=== PATIENT | female | born 1965 | race Caucasian/White ===

== ENCOUNTER → 2022-11-20 13:39 | Outpatient (CLI) | payer OTHER, SELFPAY | PROVIDERS: PCP Acupuncturist; Visit Provider Nurse Practitioner Family | DX: L02.91 Cutaneous abscess, unspecified (principal) | CPT/HCPCS: 87070; 87075; 87205 ==

== ENCOUNTER → 2023-12-08 18:48 | Outpatient (CLI) | payer OTHER, SELFPAY | PROVIDERS: Referring Provider Internal Medicine; Visit Provider Internal Medicine | DX: Z23 Encounter for immunization (principal) | CPT/HCPCS: 90471; 90656 ==

== ENCOUNTER → 2023-12-17 18:20 | Outpatient (CLI) | payer OTHER, SELFPAY | PROVIDERS: Visit Provider Registered Nurse | DX: J02.9 Acute pharyngitis, unspecified (principal) | CPT/HCPCS: 87070 ==

== ENCOUNTER 2024-02-23 08:31 | Emergency (ER) | payer OTHER, SELFPAY ==
[2024-02-23] VITALS (7 sets, daily range): BP systolic 102–141; BP diastolic 55–83; PULSE 55–69; RESP 15–19; TEMP 36.8; O2SAT 98–100; BMI 24.0
--- NOTE | 2024-02-23 09:10 | DI.US.S_ITS ---
PROCEDURE: US RENAL COMPLETE INDICATIONS: Flank pain TECHNIQUE: Real-time scanning was performed of the kidneys and bladder, with image documentation. COMPARISON: None. FINDINGS: Kidneys: Kidneys are normal in size. Right kidney measures 10.7 cm long; left kidney measures 8.9 cm long. Right renal cortical thickness is 1.5 cm; left renal cortical thickness is 1.1 cm. Renal cortical echotexture is normal. No hydronephrosis or nephrolithiasis. No suspicious solid mass lesions. Bladder: Bladder volume is 60.3 mL. Images demonstrate no intraluminal masses or stones. On pre-void images, bilateral ureteral jets are noted with color Doppler interrogation. (Of note, ureteral jets may not be detectable in up to 25% of cases due to insufficient differences in specific gravity between ureteral and bladder urine). Miscellaneous: No free pelvic fluid. IMPRESSION: Normal sonographic appearance of the kidneys and urinary bladder. Dictated by: Serjio Tello M.D. on 02/23/2024 at 10:04 Approved by: Serjio Tello M.D. on 02/23/2024 at 10:06
--- NOTE | 2024-02-23 09:10 | DI.RAD.S_ITS ---
PROCEDURE: XR KUB INDICATIONS: Flank pain TECHNIQUE: One view of the abdomen acquired. COMPARISON: None. FINDINGS: Surgical changes and devices: Uncertain if superimposed or within the patient is seen a clip overlying the right mid abdomen. Bowel: Bowel gas pattern is normal. Soft tissues: No suspicious abdominal calcifications. Mild hepatomegaly measuring 18.3 cm in the right midclavicular line. Otherwise, the visualized solid organ contours appear normal in size. Bones: No suspicious bony lesions. IMPRESSION: 1. Hepatomegaly. 2. A single large clip is seen overlying the right mid abdomen, uncertain if superimposed or within the patient. Dictated by: Serjio Tello M.D. on 02/23/2024 at 10:01 Approved by: Serjio Tello M.D. on 02/23/2024 at 10:04
--- NOTE | 2024-02-23 09:11 | ED_ITS ---
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 She was on her way to work today in the car, had sudden onset of right flank pain. Nothing makes it better or worse. Can not find a comfortable position. No prior history of heart attack strokes diabetes aortic dissection aortic aneurysm, no history of kidney stones or gallbladder disease. She prefers no opiates at this time as she is driving. She agrees for Toradol. No urinary urgency. Patient has noticed off and on pain right flank right upper quadrant for the past few days. No changes with diet or eating. Related Data Home Medications Medication Instructions Recorded Confirmed ALBUTEROL SULFATE (Ventolin / 2 puff INH Q4H PRN ##0 05/26/08 Proventil) cyclosporine 0.05 % eye drops in a drp EYE-BOTH 12/17/23 12/17/23 dropperette meloxicam 7.5 mg tablet 7.5 mg PO DAILY PRN mild pain 12/17/23 12/17/23 valacyclovir 1 gram tablet 4,000 mg PO ONCE 12/17/23 12/17/23 Previous Rx's Medication Instructions Recorded baclofen 20 mg tablet 20 mg PO TID PRN pain (scale score 02/23/24 4-6) #20 tabs Allergies Allergy/AdvReac Type Severity Reaction Status Date / Time CONTROL PILLS Allergy Mild SUN Uncoded 12/17/23 18:19 SENSATIVITY SUNSCREEN Allergy Mild RASH Uncoded 12/17/23 18:19 Review of Systems Review of Systems Narrative: GENERAL: Negative chills, fatigue, malaise, fever, sweats. HEENT: Negative sinus pain, ear pain, sore throat RESPIRATORY: Negative dyspnea, cough CARDIOVASCULAR: Negative chest pain, palpitations GASTROINTESTINAL: Negative nausea, vomiting, positive right flank/right upper abdominal pain : Negative dysuria, frequency, hematuria MUSCULOSKELETAL: Negative muscle or bony pain SKIN: Negative rash, skin lesions NEUROLOGIC: Negative weakness, numbness ROS Unobtainable: All systems reviewed & are unremarkable except as noted in HPI and below Patient History Social History Smoking Status: Never smoker Smoking Status: Never smoker Exam Narrative Exam Narrative: GENERAL: in no distress, not toxic not dyspneic HEAD: Normocephalic. EYES: Pupils equal round ENT: Mucous membranes moist. NECK: Trachea midline. CARDIOVASCULAR: Regular rate and rhythm RESPIRATORY: Clear to auscultation. Breath sounds equal bilaterally. No wheezes, rales, or rhonchi. GASTROINTESTINAL: Abdomen soft, non-tender no CVA tenderness no right upper quadrant tenderness. Negative Buckner sign. Bowel sounds are present. No peritoneal signs. No pain out of portion to exam. EXTREMITIES: No gross deformities. BACK: No flank tenderness. NEURO: AOx4. SKIN: Warm and dry PSYCH: Not anxious, is cooperative Initial Vital Signs Initial Vital Signs: Vital Signs Temperature 98.2 F 02/23/24 08:53 Pulse Rate 69 02/23/24 08:53 Respiratory Rate 15 02/23/24 08:53 Blood Pressure 141/83 H 02/23/24 08:53 Pulse Oximetry 98 02/23/24 08:53 Oxygen Delivery Method Room Air 02/23/24 08:53 Course Orders Ordered: Discontinued Medications Sodium Chloride (Normal Saline 0.9%) 500 mls @ 1,000 mls/hr IV BOLUS ONE Stop: 02/23/24 09:35 Last Infusion: 02/23/24 10:50 Dose: Infused Documented By: Admin: 02/23/24 09:18 Dose: 1,000 mls/hr Documented By: Ketorolac Tromethamine (Ketorolac 30 Mg/Ml Vial) 15 mg IV NOW ONE Stop: 02/23/24 09:07 Last Admin: 02/23/24 09:17 Dose: 15 mg Documented By: Ondansetron HCl (Ondansetron 4 Mg/2 Ml Inj) 4 mg IV NOW PRN PRN Reason: Nausea And Vomiting Ondansetron HCl (Ondansetron 4 Mg Odt) 4 mg SL NOW PRN PRN Reason: Nausea And Vomiting Vital Signs Vital signs: Vital Signs - 8 hr 02/23/24 10:00 02/23/24 12:29 02/23/24 15:08 Pulse Rate 55 L 66 65 Respiratory Rate 16 19 16 Blood Pressure 115/75 132/78 102/78 Pulse Oximetry 100 98 98 Oxygen Delivery Method Room Air Room Air Room Air MDM - Abdominal Pain Lab Data 02/23/24 08:59 02/23/24 08:59 Labs: Lab Results 02/23/24 02/23/24 Range/Units 08:59 09:25 WBC 5.1 (4.5-11.0) X10^3/uL RBC 4.43 (4.0-5.2) X10^6/uL Hgb 13.3 (12.0-16.0) g/dL Hct 40.6 (36-46) % MCV 91.6 (80-100) fL MCH 30.1 (26-34) PG MCHC 32.8 (30-36) % RDW 13.3 (11.6-14.8) % Plt Count 250 (150-400) X10^3/uL Neut % (Auto) 47.6 L (50-75) % Lymph % (Auto) 42.8 H (25-40) % [place] % (Auto) 6.5 (3-14) % Eos % (Auto) 2.4 (2-4) % Baso % (Auto) 0.7 (0-2) % Neut # (Auto) 2400 (8758-0796) /uL Lymph # (Auto) 2200 (4555-7869) /uL [place] # (Auto) 300 (0-900) /uL Eos # (Auto) 100 (0-450) /uL Baso # (Auto) 0 (0-100) /uL Sodium 139 (137-145) mmol/L Potassium 4.0 (3.4-5.1) mmol/L Chloride 106 (98-107) mmol/L Carbon Dioxide 28 (22-32) mmol/L BUN 18 H (7-17) mg/dL Creatinine 0.63 (0.52-1.04) mg/dL Estimated GFR > 60 (>60) mL/min BUN/Creatinine Ratio 28.6 H (6-22) Glucose 85 (80-110) mg/dL Calcium 9.6 (8.4-10.2) mg/dL Total Bilirubin 1.0 (0.2-1.3) mg/dL AST 46 H (14-36) IU/L ALT 22 (<35) IU/L Alkaline Phosphatase 64 (38-126) U/L Total Protein 7.1 (6.3-8.2) g/dL Albumin 4.5 (3.5-5.0) g/dL Globulin 2.6 (1.7-4.1) g/dL Albumin/Globulin Ratio 1.7 (1.0-2.8) Lipase 113 (23-300) U/L Urine Color Yellow Urine Appearance Clear Urine pH 7.0 (4.5-8.0) Ur Specific [place] <=1.005 (1.000-1.035) Urine Protein Negative (Negative) Urine Glucose (UA) Negative (Negative) g/dL Urine Ketones Negative (NEGATIVE) Urine Occult Blood Negative (Negative) Urine Nitrate Negative (Negative) Urine Bilirubin Negative (NEGATIVE) Urine Urobilinogen 0.2 (0.2) E.U./dL Ur Leukocyte Esterase Negative (NEGATIVE) Urine RBC None seen (0-5/HPF) Urine WBC None seen (0-5/HPF) Ur Squamous Epith Cells None seen (0-5/HPF) Urine Bacteria None seen (None) Ur Culture Indicated? 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 She was on her way to work today in the car, had sudden onset of right flank pain. Nothing makes it better or worse. Can not find a comfortable position. No prior history of heart attack strokes diabetes aortic dissection aortic aneurysm, no history of kidney stones or gallbladder disease. She prefers no opiates at this time as she is driving. She agrees for Toradol. No urinary urgency. Patient has noticed off and on pain right flank right upper quadrant for the past few days. No changes with diet or eating. After history and exam, CT imaging machine is broken for the past 2 days. At this time will order ultrasound kidneys x-ray KUB Toradol Zofran normal saline CBC CMP urinalysis [facility] Medical records reviewed: No recent visit for this complaint Differential considered: Includes but not limited to kidney stone pyelonephritis UTI cholelithiasis cholecystitis Lab Test results independently reviewed as above. Pertinent findings: WBC 5.1 hemoglobin 13.3 sodium 139 potassium 4.0 BUN 18 creatinine 0.63 AST 46 ALT 22 lipase 113 urinalysis negative Imaging studies independently reviewed: Ultrasound kidneys no acute finding x- ray KUB negative. Ultrasound limited abdomen no acute finding. CT chest abdomen pelvis no acute finding Consultations: Treatments: Toradol Zofran normal saline Re-evaluations: 10:42 a.m.. Updated patient results. Her pain is better. Awaiting now for blood work and gallbladder ultrasound to be done. Urinalysis x-ray KUB and renal ultrasound are reassuring. 11:33 a.m.. Updated patient results. She does agree for CT imaging as pain has not completely resolved. She states it feels maybe deeper. But it is tender on palpation right CVA area. Denies any chest pain or shortness of breath. 5:16 p.m.. Patient resting comfortably. On her right side. No distress. Reviewed results with her. They are reassuring at this time. Return precautions reviewed. She desires discharge home Discussion: Appropriate for discharge home exam is reassuring. Return precautions reviewed with patient, pain is controlled. Likely musculoskeletal source of pain. She did do some ?air boxing ?on her video game yesterday this is common exercise for her. She thinks she may have strained something in her back with air punching. Diagnosis: Right flank pain Discharge Plan Departure Patient Disposition: Home Clinical Impression: Acute flank pain Instructions: DI for Flank Pain Activity Restrictions/Additional Instructions: Your exam and laboratory studies imaging studies are reassuring. No acute finding seen today. It is possible it is muscular pain causing your discomfort. Prescription has been provided for you. Work note provided for you. Please see family doctor in a week for re-evaluation. Return if worse if any questions or concerns. Prescriptions: New baclofen 20 mg tablet 20 mg PO TID PRN (Reason: pain (scale score 4-6)) Qty: 20 0RF No Action meloxicam 7.5 mg tablet 7.5 mg PO DAILY PRN (Reason: mild pain) valacyclovir 1 gram tablet 4,000 mg PO ONCE cyclosporine 0.05 % dropperette EYE-BOTH ALBUTEROL SULFATE (Ventolin / Proventil) 2 puff INH Q4H PRN Qty: 0 Referrals: Miscellaneous,Doctor, MD [Primary Care Provider] - Stand Alone Forms: Patient Portal/API/Survey, Work Release Note
[2024-02-23] MEDS: KETOROLAC 30 MG/ML VIAL 15 MG IV (09:17)
[2024-02-23] MEDS: SODIUM CHLORIDE 0.9% 500 ML 1000 ML IV (09:18)
[2024-02-23 09:38] LABS: Appearance Urine UA CLEAR; Bilirubin Urine UA NEGATIVE (NEGATIVE); Color Urine UA YELLOW; Glucose Urine UA NEGATIVE (Negative); Ketones Urine UA NEGATIVE (NEGATIVE); Leukocyte Esterase Urine UA NEGATIVE (NEGATIVE); Nitrite Urine UA NEGATIVE (Negative); Occult Blood Urine UA NEGATIVE (Negative); Protein Urine UA NEGATIVE (Negative); Specific Gravity Urine UA <=1.005 (1.000-1.035); Urobilinogen Urine UA 0.2 E.U./dL (0.2)
[2024-02-23 09:43] LABS: Urine Volume 10mL (spun)
[2024-02-23 09:44] LABS: Bacteria Urine None Seen; Culture Indicated Urine Cult Not Indicated; RBC Urine None Seen (0-5/HPF); Squamous Epithelial Cell Urine None Seen (0-5/HPF); WBC Urine None Seen (0-5/HPF)
--- NOTE | 2024-02-23 09:53 | PC.NURSE ---
Pt reports that pain is less. 5/10 at this time. Call germain within reach.
--- NOTE | 2024-02-23 10:39 | DI.US.S_ITS ---
PROCEDURE: US ABDOMEN LIMITED INDICATIONS: Right upper quadrant pain/attention gallbladder TECHNIQUE: Real-time scanning was performed of the abdominal and retroperitoneal organs, with image documentation. COMPARISON: None. FINDINGS: Liver: Liver is normal in size and homogeneous in echotexture. Gallbladder: No gallstones. No wall thickening. No pericholecystic edema. Negative sonographic Buckner's sign. Biliary ducts: Intrahepatic bile ducts are non-dilated. Extrahepatic bile duct caliber measures 4 mm. Normal is 6-7 mm or less in diameter, or 10 mm or less post-cholecystectomy. Right Kidney: Normal size at 10.9 cm with normal cortical thickness. No hydronephrosis or nephrolithiasis. Pancreas: Visualized portions of the pancreas are sonographically normal. Miscellaneous: No free abdominal fluid. IMPRESSION: 1. No evidence of acute cholecystitis. 2. Normal sonographic appearance of the right upper quadrant. Dictated by: Serjio Tello M.D. on 02/23/2024 at 12:49 Approved by: Serjio Tello M.D. on 02/23/2024 at 13:07
--- NOTE | 2024-02-23 10:51 | PC.NURSE ---
Pt up to BR. Steady gait noted. Discussed plan of care, understands.
[2024-02-23 10:57] LABS: Add Manual Diff / Slide Review NO; Basophils Absolute Auto 0 /uL (0-100); Basophils Percent Auto 0.7 % (0-2); Eosinophils Absolute Auto 100 /uL (0-450); Eosinophils Percent Auto 2.4 % (2-4); Hematocrit 40.6 % (36-46); Hemoglobin 13.3 g/dL (12.0-16.0); Lymphocytes Absolute Auto 2200 /uL (1100-4500); Lymphocytes Percent Auto 42.8 % (25-40); Mean Corpuscular HGB Conc 32.8 % (30-36); Mean Corpuscular Hemoglobin 30.1 PG (26-34); Mean Corpuscular Volume 91.6 fL (80-100); Monocytes Absolute Auto 300 /uL (0-900); Monocytes Percent Auto 6.5 % (3-14); Neutrophils Absolute Auto 2400 /uL (1500-7000); Neutrophils Percent Auto 47.6 % (50-75); Platelet Count 250 X10^3/uL (150-400); Red Blood Cell Count 4.43 X10^6/uL (4.0-5.2); Red Cell Distribution Width 13.3 % (11.6-14.8); White Blood Cell Count 5.1 X10^3/uL (4.5-11.0)
[2024-02-23 11:05] LABS: Alanine Aminotransferase 22 IU/L (<35); Albumin 4.5 g/dL (3.5-5.0); Albumin Globulin Ratio 1.7 (1.0-2.8); Alkaline Phosphatase 64 U/L (38-126); Aspartate Aminotransferase 46 IU/L (14-36); BUN Creatinine Ratio 28.6 (6-22); Blood Urea Nitrogen 18 mg/dL (7-17); Calcium 9.6 mg/dL (8.4-10.2); Carbon Dioxide 28 mmol/L (22-32); Chloride 106 mmol/L (98-107); Estimated Glomerular Filt Rate > 60 mL/min (>60); Globulin 2.6 g/dL (1.7-4.1); Glucose 85 mg/dL (80-110); HEMOLYSIS < 15 (0-50); Lipase 113 U/L (23-300); Sodium 139 mmol/L (137-145); Total Protein 7.1 g/dL (6.3-8.2)
--- NOTE | 2024-02-23 11:49 | PC.NURSE ---
Pt states that she is very hungry. ok for pt to have PO intake. Coffee and food brought to pt.
== END 2024-02-23 17:29 | disposition home or self-care (01) ==
PROVIDERS: Emergency Provider Emergency Medicine
DX: R10.11 Right upper quadrant pain (principal)
CPT/HCPCS: 74018; 76705; 76770; 80053; 81001; 83690; 85025; 96361; 96374; 99283; 99284; J1885

== ENCOUNTER 2024-06-01 09:00 | Outpatient (RCR) | payer OTHER, SELFPAY ==
--- NOTE | 2024-04-06 18:39 | PT.OIE ---
Current Diagnoses Primary osteoarthritis, left shoulder (04/06/24) Incomplete rotator cuff tear or rupture of left shoulder, not specified as traumatic (04/06/24) Visit Care Team Role Provider Type Reba Limon MD Family Provider Non-Staff Primary Care Provider Specialty: Medical Address: [address] [place] [address], [place], [address] Email: Fer Lind DO Attending Provider Non-Staff Referring Provider Specialty: Orthopedics Address: [address] [place] [address], [place], [address] Email: Physical Therapy Initial Evaluation PT-OP-A Visit Information Start: 04/06/24 11:51 Freq: Status: Active Protocol: Document 04/06/24 12:16 LRN (Rec: 04/06/24 13:09 LRN [id number]) Out-Patient Physical Therapy Visit Information Visit Information Visit Type Initial Evaluation Visit Start Time 12:16 Visit Stop Time 13:07 Visit Number Evaluation Information Evaluation Date 04/06/24 Precautions Precautions Per intake form: Osteoporosis , neck pain w/severe stenosis (constant R sided ms spasms), R forearm ORIF, umbilical hernia. Per pt: hx of L/S herniated discs. PT-OP-B Current Condition Start: 04/06/24 11:51 Freq: Status: Active Protocol: Document 04/06/24 12:16 LRN (Rec: 04/06/24 13:09 LRN [id number]) Current Condition History of Current Condition Onset Date 12/2022 Current Complaints L shoulder pain (R shoulder pain not approved for PT) History of Current Condition States in 2023 had Physical Therapy for L RC injury at [facility] in [facility] for 6-8 sessions, had + response and thought she was healed because she had full ROM, and didn't have the strength tested, but was playing pickle ball, able to do outside land management on large property, 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 In 12/2022 went on fishing trip and helped staff carry heavy boxes up a [place] and by the end of the trip her L shoulder was very painful. She had injured her R shoulder 7 months ago ( reports, not approved by L&I for treatment); therefore has been doing everything with her L shoulder; it now hurts again. Has tried to do ex's from her previous therapy. Saw Dr. Valadez and then had MRI ( results unknown). Since new onset of L shoulder pain she is limited to lifting to shoulder height or above because of pain. She is attending [facility] PT because she is now working in [employer]. Prior Treatments and Tests No new MRI's or X-rays since new onset of L shoulder pain. MRI done at [facility]; therefore results are not available. Has had chiro visits 10 yrs ago. Pt reports hx of Lumbar herniated disc but no longer has pain. 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 L shoulder pain till September 2023 Now restricted from doing UE activities to waist high. Lives in [place]. Seizure x 1 (10+ yrs ago). Treatment Goals Patient/Caregiver Goals Pt goals: -be able to pull a piece of equipment from above shoulder hgt or reach up to get something at home w/o pain. -functional activities reaching or scratching her back, reaching out to the side painfree. -improve upper body strength. -HEP Personal Factors Other Personal Factors That May Effect Osteoporosis, neck pain w/ Therapy/Recovery severe stenosis (constant R sided ms spasms). 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 PT-OP-C Subjective Start: 04/06/24 11:51 Freq: Status: Active Protocol: Document 04/06/24 12:16 LRN (Rec: 04/06/24 13:09 LRN [id number]) Patient Questionnaires Quick Dash- Upper Extremity Quick Dash UE Score 43.18 Quick Dash UE Impairment 40 to 59% Impaired (Score 40- 59) OP-PT Pain Assessment Pain Assessment Grid Paper Pain Assessment Grid Completed Yes Location L shoulder Pain Location Details Deep in Deltoid Intensity 6 Scale Used Numeric (0 - 10) Description- Other Deep ache PT-OP-E Functional Tests Start: 04/06/24 11:51 Freq: Status: Active Protocol: Document 04/06/24 12:16 LRN (Rec: 04/06/24 13:09 LRN [id number]) Functional Tests Nicoleey's Scratch Test Action 3- Left T5 Action 3- Right T7 PT-OP-H Neuro Start: 04/06/24 11:51 Freq: Status: Active Protocol: Document 04/06/24 12:16 LRN (Rec: 04/06/24 13:09 LRN [id number]) Sensation Evaluation Gross Sensation Gross Sensation WNL PT-OP-J Posture/Palpation/Skin Start: 04/06/24 11:51 Freq: Status: Active Protocol: Document 04/06/24 12:16 LRN (Rec: 04/06/24 13:09 LRN [id number]) Posture Evaluation Position Standing L-Spine Posture Increased Lordosis Shoulder Posture (L) Forward,(L) Elevated Scapula Posture (L) Rotated Down,(L) Elevated Knee Posture (L) Genu Valgus,(R) Genu Valgus Ankle/Foot Posture (R) Pronated,(L) Supinated Comments Posture Comments Dowagers hump, T/S is C- curved w/apex on the left. PT-OP-K Range of Motion Start: 04/06/24 11:51 Freq: Status: Active Protocol: Document 04/06/24 12:16 LRN (Rec: 04/06/24 13:09 LRN [id number]) Shoulder Goniometric Range of Motion Shoulder Right Active Testing Position Sitting Flexion 155 Abduction 137 External Rotation at 0 degrees Abduction 90 Internal Rotation Behind Back (text) T7 Left Active Testing Position Sitting Flexion 132 Abduction 32 External Rotation at 0 degrees Abduction 72 Internal Rotation Behind Back (text) t5 PT-OP-M Strength Start: 04/06/24 11:51 Freq: Status: Active Protocol: Document 04/06/24 12:16 LRN (Rec: 04/06/24 13:09 LRN [id number]) Shoulder Strength Shoulder Manual Muscle Testing Right Comments 5/5 generally Left Flexion 4 Good Abduction (C5) 2+ Poor+ External Rotation 4 Good Internal Rotation 3 Fair PT-OP-Q Treatments Start: 04/06/24 11:51 Freq: Status: Active Protocol: Document 04/06/24 12:16 LRN (Rec: 04/06/24 13:09 LRN [id number]) Self-Care/Home Management Treatment Education Other Education Discussed at length the results of evaluation, goals, treatment, and plan of care ( POC) with pt, attendance/cx/ dns policy; pt agreeable to evaluation, goals, treatment, attendance/cx/dns policy and POC. Discussed pt's limitations and recommended the pt work within her pain tolerance and not work into pain. Activities Self-Care/Home Management Activities I/S pt to bring her previous ex's in for review. PT-OP-T Assessment and Plan Start: 04/06/24 11:51 Freq: Status: Active Protocol: Document 04/06/24 12:16 LRN (Rec: 04/06/24 13:09 LRN [id number]) Physical Therapy Assessment Rehab Potential Rehabilitation Potential Fair Evaluation Complexity Number of Personal Factors/Comorbidities 1-2 Number of Body Systems Impaired 4 or More Clinical Presentation at Evaluation Evolving Impairments Impairments Activity Tolerance,Pain, Posture,ROM,Soft Tissue Mobility,Strength Goals Three Impairment Decreased L shoulder strength Short Term Goal (STG) Pt will be able to improve upper body strength by tolerating lifting exercises with her L UE and show improved function per UE Quickdash score. STG Duration 05/04/24 Senior Care Goal (LTG) Pt will be able to pull a piece of equipment from above shoulder hgt with L arm, or reach up to get something at home w/o pain. LTG Duration 06/01/24 Two Impairment Decreased L shoulder painfree ROM Short Term Goal (STG) Pt will be educated and consistent with proper body mechanics for ADLs and able to perform 80% of full L shoulder AROM (flex & AB 144?, ER 72?, IR 56?) w/o pain. STG Duration 05/04/24 Senior Care Goal (LTG) Pt rosalba be able to perform functional activities reaching or scratching her back, or reaching out to the side painfree. LTG Duration 06/01/24 One Impairment Lacks HEP Short Term Goal (STG) Pt will be educated & consistent with self care pain management and best nighttime positioning. STG Duration 05/04/24 Senior Care Goal (LTG) Pt will be independent with a L neck/shoulder ROM and L shoulder/scapular/elbow strengthening program. LTG Duration 06/01/24 Assessment Summary Assessment Pt is a 59 yo female whoe presents with a L rotator cuff (RC) dysfunction, possible tear, with limited L shoulder mobility and strength. Pt's pain is when lifting or using her L arm overhead. The pt's hindering factor is the chronic nature of her pain and that her R shoulder is currently also bothering her. The pt will benefit from skilled physical therapy to strengthen her L shoulder and maximize the RC strength. Physical Therapy Plan Frequency and Duration Frequency of Treatment 2x/Week Duration of treatment (weeks) 8 Plan of Care Start Date 04/06/24 Plan of Care End Date 06/01/24 Therapeutic Interventions Therapeutic Interventions Home Exercise Program,Joint Mobilizations,Manual Therapy, Neuromuscular Re-education, Self-Care/Home Management,Soft Tissue Mobilization,Taping, Therapeutic Activities, Therapeutic Exercises Modalities Cold Pack/Ice Massage,Electric Stimulation,Hot Packs Next Visit Focus/Plan Next Note Type Treatment Note Next Visit Plan L RC tear rehab. Next: Complete Apley Scratch assess. Review prior HEP. Gentle L shoulder ROM f/b active gravity resisted exercise, holding pt back from being aggressive with exercise. Education: Body mechanics, nighttime positioning and pain mgmt (TAN). Manual: STM neck/shoulder/ intrascap ms, JMT: ?ribs, T/S. Ex: Scap stab, RC strengthening. Modalities: Estim/MH/Ice.
--- NOTE | 2024-04-11 10:17 | PT.OTN ---
Current Diagnoses Primary osteoarthritis, left shoulder (04/11/24) Incomplete rotator cuff tear or rupture of left shoulder, not specified as traumatic (04/11/24) Physical Therapy Treatment Note PT-OP-A Visit Information Start: 04/06/24 11:51 Freq: Status: Active Protocol: Document 04/11/24 09:04 LRN (Rec: 04/11/24 10:14 LRN [id number]) Out-Patient Physical Therapy Visit Information Visit Information Visit Type Treatment Note Visit Start Time 09:04 Visit Stop Time 09:49 Visit Number 2 Evaluation Information Evaluation Date 04/06/24 Precautions Precautions Per intake form: Osteoporosis , neck pain w/severe stenosis (constant R sided ms spasms), R forearm ORIF, umbilical hernia. Per pt: hx of L/S herniated discs. PT-OP-B Current Condition Start: 04/06/24 11:51 Freq: Status: Active Protocol: Document 04/06/24 12:16 LRN (Rec: 04/06/24 13:09 LRN [id number]) Current Condition History of Current Condition Onset Date 12/2022 Current Complaints L shoulder pain (R shoulder pain not approved for PT) History of Current Condition States in 2023 had Physical Therapy for L RC injury at 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 In 12/2022 went on fishing trip and helped staff carry heavy boxes up a [place] and by the end of the trip her L shoulder was very painful. She had injured her R shoulder 7 months ago ( reports, not approved by L&I for treatment); therefore has been doing everything with her L shoulder; it now hurts again. Has tried to do ex's from her previous therapy. Saw Dr. Valadez and then had MRI ( results unknown). Since new onset of L shoulder pain she is limited to lifting to shoulder height or above because of pain. She is attending [facility] PT because she is now working in [employer]. Prior Treatments and Tests No new MRI's or X-rays since new onset of L shoulder pain. MRI done at [facility]; therefore results are not available. Has had chiro visits 10 yrs ago. Pt reports hx of Lumbar herniated disc but no longer has pain. 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 L shoulder pain till September 2023 Now restricted from doing UE activities to waist high. Lives in [place]. Seizure x 1 (10+ yrs ago). Treatment Goals Patient/Caregiver Goals Pt goals: -be able to pull a piece of equipment from above shoulder hgt or reach up to get something at home w/o pain. -functional activities reaching or scratching her back, reaching out to the side painfree. -improve upper body strength. -HEP Personal Factors Other Personal Factors That May Effect Osteoporosis, neck pain w/ Therapy/Recovery severe stenosis (constant R sided ms spasms). 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 PT-OP-C Subjective Start: 04/06/24 11:51 Freq: Status: Active Protocol: Document 04/11/24 09:04 LRN (Rec: 04/11/24 10:14 LRN [id number]) OP-PT Subjective Patient Comments Patient Comments States she has a mix of ex's so prefers to demonstrate ex's PT-OP-E Functional Tests Start: 04/06/24 11:51 Freq: Status: Active Protocol: Document 04/11/24 09:04 LRN (Rec: 04/11/24 10:17 LRN [id number]) Functional Tests Apley's Scratch Test Action 1- Left Slight posterior of R GHJ Action 1- Right Spine of L scapula Action 2- Left T2 Action 2- Right T3 Action 3- Left T5 Action 3- Right T7 PT-OP-H Neuro Start: 04/06/24 11:51 Freq: Status: Active Protocol: Document 04/06/24 12:16 LRN (Rec: 04/06/24 13:09 LRN [id number]) Sensation Evaluation Gross Sensation Gross Sensation WNL PT-OP-J Posture/Palpation/Skin Start: 04/06/24 11:51 Freq: Status: Active Protocol: Document 04/06/24 12:16 LRN (Rec: 04/06/24 13:09 LRN [id number]) Posture Evaluation Position Standing L-Spine Posture Increased Lordosis Shoulder Posture (L) Forward,(L) Elevated Scapula Posture (L) Rotated Down,(L) Elevated Knee Posture (L) Genu Valgus,(R) Genu Valgus Ankle/Foot Posture (R) Pronated,(L) Supinated Comments Posture Comments Dowagers hump, T/S is C- curved w/apex on the left. PT-OP-K Range of Motion Start: 04/06/24 11:51 Freq: Status: Active Protocol: Document 04/06/24 12:16 LRN (Rec: 04/06/24 13:09 LRN [id number]) Shoulder Goniometric Range of Motion Shoulder Right Active Testing Position Sitting Flexion 155 Abduction 137 External Rotation at 0 degrees Abduction 90 Internal Rotation Behind Back (text) T7 Left Active Testing Position Sitting Flexion 132 Abduction 32 External Rotation at 0 degrees Abduction 72 Internal Rotation Behind Back (text) t5 PT-OP-M Strength Start: 04/06/24 11:51 Freq: Status: Active Protocol: Document 04/06/24 12:16 LRN (Rec: 04/06/24 13:09 LRN [id number]) Shoulder Strength Shoulder Manual Muscle Testing Right Comments 5/5 generally Left Flexion 4 Good Abduction (C5) 2+ Poor+ External Rotation 4 Good Internal Rotation 3 Fair PT-OP-Q Treatments Start: 04/06/24 11:51 Freq: Status: Active Protocol: Document 04/11/24 09:04 LRN (Rec: 04/11/24 10:14 LRN [id number]) Therapeutic Exercises Standing Exercises Pec stretch Standing Exercise Name Corner stretch with arms in different hgts (50 deg's AB to start) Side bilateral Reps/Minutes 10 SH, tried 60 SH x 5-8 each position, each hold Comments Much phys & v cuing for tolerated stretch positioning. Shoulder flex stretch Standing Exercise Name Arms up wall with hands together and hands apart and shldrs ER'd. Side bilateral Equipment Used Wall Reps/Minutes 15' Comments Phys & v cuing for scapular motion & stabilization on retn to start postion Manual Therapy Treatment Consent Patient gave verbal consent for manual Yes treatment Joint Mobilizations Ribs & CVJ Joint ribs 7, 8 & CVJ's 6, 7 Direction Ribs inferior mob and assist'd elevation, CVJ 6 - PA Grade II Body Position Supine Reps/Duration 10' Self-Care/Home Management Treatment Education Other Education Discussed and educated pt in RICE technique for pain mgmt and in ways the pt could visual be reminded to use cyrotherapy when having pain or after exercise. Activities Self-Care/Home Management Activities Issued & reviewed HEP: Corner pec stretch & shoulder flex with back of hands on wall. Handout issued for RICE technique. PT-OP-T Assessment and Plan Start: 04/06/24 11:51 Freq: Status: Active Protocol: Document 04/11/24 09:04 LRN (Rec: 04/11/24 10:14 LRN [id number]) Physical Therapy Assessment Goals Three Impairment Decreased L shoulder strength Short Term Goal (STG) Pt will be able to improve upper body strength by tolerating lifting exercises with her L UE and show improved function per UE Quickdash score. STG Duration 05/04/24 Shelter Goal (LTG) Pt will be able to pull a piece of equipment from above shoulder hgt with L arm, or reach up to get something at home w/o pain. LTG Duration 06/01/24 Two Impairment Decreased L shoulder painfree ROM Short Term Goal (STG) Pt will be educated and consistent with proper body mechanics for ADLs and able to perform 80% of full L shoulder AROM (flex & AB 144?, ER 72?, IR 56?) w/o pain. STG Duration 05/04/24 Shelter Goal (LTG) Pt rosalba be able to perform functional activities reaching or scratching her back, or reaching out to the side painfree. LTG Duration 06/01/24 One Impairment Lacks HEP Short Term Goal (STG) Pt will be educated & consistent with self care pain management and best nighttime positioning. 04/11/24: Discussed & issued RICE technique for pain mgmt. STG Duration 05/04/24 progressed 04/11/24 (need ed nighttime positioning) Shelter Goal (LTG) Pt will be independent with a L neck/shoulder ROM and L shoulder/scapular/elbow strengthening program. 04/11/24: HEP: Corner pec stretch & shoulder flex with back of hands on wall. LTG Duration 06/01/24 progressed 04/11/24 Assessment Summary Assessment 59 yo female w/L RC dysfunction, possible tear, limited mobility & strength due to pain, especially overhead, chronic pain; also with R shoulder pain. Today, pt did not bring prior HEP in . With ex stretching she demonstrates overstretching mentality, moving into pain with shoulder/pec stretches. Much verbal direction is needed to hold pt back to tolerable exercise. R rib 7, 8 lacks inferior mobility and is posterior, causing pain with R shoulder flexion. + response to PA mob of rib 7 with some reduction of pain during shoulder flex ROM ex. Pec stretching improved tolerance to shoulder flex stretching. Physical Therapy Plan Frequency and Duration Frequency of Treatment 2x/Week Duration of treatment (weeks) 8 Plan of Care Start Date 04/06/24 Plan of Care End Date 06/01/24 Next Visit Focus/Plan Next Note Type Treatment Note Next Visit Plan L RC (possible tear) rehab. Next: Assess if pt adhering to pain mgmt and not overstretching with HEP. If pt brings in, review & update prior HEP. Gentle L shoulder ROM f/b active gravity resisted exercise, holding pt back from being aggressive with exercise. Education: nighttime positioning and Body mechanics. Manual: STM neck/shoulder/ intrascap ms, JMT: ?ribs (7,8) , T/S. Ex: Scap stab, RC strengthening. Modalities: Estim/MH/Ice.
--- NOTE | 2024-04-13 09:43 | PT.OTN ---
Current Diagnoses Primary osteoarthritis, left shoulder (04/13/24) Incomplete rotator cuff tear or rupture of left shoulder, not specified as traumatic (04/13/24) Physical Therapy Treatment Note PT-OP-A Visit Information Start: 04/06/24 11:51 Freq: Status: Active Protocol: Document 04/13/24 07:38 LRN (Rec: 04/13/24 08:16 LRN [id number]) Out-Patient Physical Therapy Visit Information Visit Information Visit Type Treatment Note Visit Start Time 07:38 Visit Stop Time 08:10 Visit Number 3 Evaluation Information Evaluation Date 04/06/24 Precautions Precautions Per intake form: Osteoporosis , neck pain w/severe stenosis (constant R sided ms spasms), R forearm ORIF, umbilical hernia. Per pt: hx of L/S herniated discs. PT-OP-B Current Condition Start: 04/06/24 11:51 Freq: Status: Active Protocol: Document 04/06/24 12:16 LRN (Rec: 04/06/24 13:09 LRN [id number]) Current Condition History of Current Condition Onset Date 12/2022 Current Complaints L shoulder pain (R shoulder pain not approved for PT) History of Current Condition States in 2023 had Physical Therapy for L RC injury at [facility] in [facility] for 6-8 sessions, had + response and thought she was healed because she had full ROM, and didn't have the strength tested, but was playing pickle ball, able to do outside land management on large property, 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 In 12/2022 went on fishing trip and helped staff carry heavy boxes up a [place] and by the end of the trip her L shoulder was very painful. She had injured her R shoulder 7 months ago ( reports, not approved by L&I for treatment); therefore has been doing everything with her L shoulder; it now hurts again. Has tried to do ex's from her previous therapy. Saw Dr. Valadez and then had MRI ( results unknown). Since new onset of L shoulder pain she is limited to lifting to shoulder height or above because of pain. She is attending [facility] PT because she is now working in [employer]. Prior Treatments and Tests No new MRI's or X-rays since new onset of L shoulder pain. MRI done at [facility]; therefore results are not available. Has had chiro visits 10 yrs ago. Pt reports hx of Lumbar herniated disc but no longer has pain. 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 L shoulder pain till September 2023 Now restricted from doing UE activities to waist high. Lives in [place]. Seizure x 1 (10+ yrs ago). Treatment Goals Patient/Caregiver Goals Pt goals: -be able to pull a piece of equipment from above shoulder hgt or reach up to get something at home w/o pain. -functional activities reaching or scratching her back, reaching out to the side painfree. -improve upper body strength. -HEP Personal Factors Other Personal Factors That May Effect Osteoporosis, neck pain w/ Therapy/Recovery severe stenosis (constant R sided ms spasms). 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 PT-OP-C Subjective Start: 04/06/24 11:51 Freq: Status: Active Protocol: Document 04/13/24 07:38 LRN (Rec: 04/13/24 08:16 LRN [id number]) OP-PT Subjective Patient Comments Patient Comments Did an oculous workout, swinging arms around and arms now are ultra sore, so took Meloxicam and Gabapentin. States she normally doesn't use both meds. States she doesn't have her previous exercises from the last session. Pain L shoulder to start is 10. not allergic to latex. PT-OP-E Functional Tests Start: 04/06/24 11:51 Freq: Status: Active Protocol: Document 04/11/24 09:04 LRN (Rec: 04/11/24 10:17 LRN [id number]) Functional Tests Apley's Scratch Test Action 1- Left Slight posterior of R GHJ Action 1- Right Spine of L scapula Action 2- Left T2 Action 2- Right T3 Action 3- Left T5 Action 3- Right T7 PT-OP-H Neuro Start: 04/06/24 11:51 Freq: Status: Active Protocol: Document 04/06/24 12:16 LRN (Rec: 04/06/24 13:09 LRN [id number]) Sensation Evaluation Gross Sensation Gross Sensation WNL PT-OP-J Posture/Palpation/Skin Start: 04/06/24 11:51 Freq: Status: Active Protocol: Document 04/06/24 12:16 LRN (Rec: 04/06/24 13:09 LRN [id number]) Posture Evaluation Position Standing L-Spine Posture Increased Lordosis Shoulder Posture (L) Forward,(L) Elevated Scapula Posture (L) Rotated Down,(L) Elevated Knee Posture (L) Genu Valgus,(R) Genu Valgus Ankle/Foot Posture (R) Pronated,(L) Supinated Comments Posture Comments Dowagers hump, T/S is C- curved w/apex on the left. PT-OP-K Range of Motion Start: 04/06/24 11:51 Freq: Status: Active Protocol: Document 04/13/24 07:38 LRN (Rec: 04/13/24 08:16 LRN [id number]) Shoulder Goniometric Range of Motion Shoulder Right Active Testing Position Standing Flexion 100 Comments ROM taken at max motion before worsening of pain. Left Active Testing Position Standing Flexion 100 Comments ROM taken at max motion before worsening of pain. PT-OP-M Strength Start: 04/06/24 11:51 Freq: Status: Active Protocol: Document 04/06/24 12:16 LRN (Rec: 04/06/24 13:09 LRN [id number]) Shoulder Strength Shoulder Manual Muscle Testing Right Comments 5/5 generally Left Flexion 4 Good Abduction (C5) 2+ Poor+ External Rotation 4 Good Internal Rotation 3 Fair PT-OP-Q Treatments Start: 04/06/24 11:51 Freq: Status: Active Protocol: Document 04/13/24 07:38 LRN (Rec: 04/13/24 08:16 LRN [id number]) Cardio Equipment Upper Body Ergometer (UBE) Duration (Minutes) 5 RPM 90 Height 3 Other cued no L shoulder pain onset Therapeutic Exercises Sidelying Exercises Shdr ER/opp side IR Side left Reps/Minutes 10x, 5x Standing Exercises Shoulder flex stretch Standing Exercise Name Arms up wall with hands together and hands apart and shldrs ER'd. Side bilateral Resistance 100 deg's flex Equipment Used Wall Reps/Minutes 10x Comments Phys & v cuing for scapular motion & stabilization on retn to start postion Self-Care/Home Management Treatment Activities Self-Care/Home Management Activities Issued TB for Kurt shdr ER with wall slide shdr flex at end-range of comfort. PT-OP-T Assessment and Plan Start: 04/06/24 11:51 Freq: Status: Active Protocol: Document 04/13/24 07:38 LRN (Rec: 04/13/24 08:16 LRN [id number]) Physical Therapy Assessment Goals Three Impairment Decreased L shoulder strength Short Term Goal (STG) Pt will be able to improve upper body strength by tolerating lifting exercises with her L UE and show improved function per UE Quickdash score. STG Duration 05/04/24 Chcf Goal (LTG) Pt will be able to pull a piece of equipment from above shoulder hgt with L arm, or reach up to get something at home w/o pain. LTG Duration 06/01/24 Two Impairment Decreased L shoulder painfree ROM Short Term Goal (STG) Pt will be educated and consistent with proper body mechanics for ADLs and able to perform 80% of full L shoulder AROM (flex & AB 144?, ER 72?, IR 56?) w/o pain. STG Duration 05/04/24 Communications And Signals Supervisor Goal (LTG) Pt rosalba be able to perform functional activities reaching or scratching her back, or reaching out to the side painfree. LTG Duration 06/01/24 One Impairment Lacks HEP Short Term Goal (STG) Pt will be educated & consistent with self care pain management and best nighttime positioning. 04/11/24: Discussed & issued RICE technique for pain mgmt. STG Duration 05/04/24 progressed 04/11/24 (need ed nighttime positioning) Communications And Signals Supervisor Goal (LTG) Pt will be independent with a L neck/shoulder ROM and L shoulder/scapular/elbow strengthening program. 04/11/24: HEP: Corner pec stretch & shoulder flex with back of hands on wall. 04/13/24: I/S pt in scap stab ex: shdr wall flex (~100? with kurt shdr ER hold) and Lev 2 TB issued. Pt denies Latex allergy. LTG Duration 06/01/24 progressed 04/13/24 Assessment Summary Assessment L RC dysfunction. Pain is low , rated 1/10. Pt is not consistent with pain mgmt w/ RICE technique, pt reporting activities still that over- stretch her shoulder ms (video game play). SIdelie shdr ER causes tinging in L elbow/ forearm after 7 reps. Much education cuing needed to start ex in proper scapular position to prevent impingement. Physical Therapy Plan Frequency and Duration Frequency of Treatment 2x/Week Duration of treatment (weeks) 8 Plan of Care Start Date 04/06/24 Plan of Care End Date 06/01/24 Next Visit Focus/Plan Next Note Type Treatment Note Next Visit Plan L RC (possible tear) rehab. Next: Education: nighttime positioning and Body mechanics . Progressive L shoulder ROM f/b active gravity resisted exercise, holding pt back from being aggressive with exercise. Manual: STM neck/shoulder/ intrascap ms, JMT: ?ribs (7,8) , T/S. Ex: Scap stab, RC strengthening. Modalities: Estim/MH/Ice.
--- NOTE | 2024-04-18 13:42 | PT.OTN ---
Current Diagnoses Primary osteoarthritis, left shoulder (04/18/24) Incomplete rotator cuff tear or rupture of left shoulder, not specified as traumatic (04/18/24) Physical Therapy Treatment Note PT-OP-A Visit Information Start: 04/06/24 11:51 Freq: Status: Active Protocol: Document 04/18/24 08:19 LRN (Rec: 04/18/24 09:07 LRN [id number]) Out-Patient Physical Therapy Visit Information Visit Information Visit Type Treatment Note Visit Start Time 08:19 Visit Stop Time 09:05 Visit Number 4 Evaluation Information Evaluation Date 04/06/24 Precautions Precautions Per intake form: Osteoporosis , neck pain w/severe stenosis (constant R sided ms spasms), R forearm ORIF, umbilical hernia. Per pt: hx of L/S herniated discs. PT-OP-B Current Condition Start: 04/06/24 11:51 Freq: Status: Active Protocol: Document 04/06/24 12:16 LRN (Rec: 04/06/24 13:09 LRN [id number]) Current Condition History of Current Condition Onset Date 12/2022 Current Complaints L shoulder pain (R shoulder pain not approved for PT) History of Current Condition States in 2023 had Physical Therapy for L RC injury at [facility] in [facility] for 6-8 sessions, had + response and thought she was healed because she had full ROM, and didn't have the strength tested, but was playing pickle ball, able to do outside land management on large property, 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 In 12/2022 went on fishing trip and helped staff carry heavy boxes up a [place] and by the end of the trip her L shoulder was very painful. She had injured her R shoulder 7 months ago ( reports, not approved by L&I for treatment); therefore has been doing everything with her L shoulder; it now hurts again. Has tried to do ex's from her previous therapy. Saw Dr. Valadez and then had MRI ( results unknown). Since new onset of L shoulder pain she is limited to lifting to shoulder height or above because of pain. She is attending [facility] PT because she is now working in [place]. Prior Treatments and Tests No new MRI's or X-rays since new onset of L shoulder pain. MRI done at [facility]; therefore results are not available. Has had chiro visits 10 yrs ago. Pt reports hx of Lumbar herniated disc but no longer has pain. 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 L shoulder pain till September 2023 Now restricted from doing UE activities to waist high. Lives in [place]. Seizure x 1 (10+ yrs ago). Treatment Goals Patient/Caregiver Goals Pt goals: -be able to pull a piece of equipment from above shoulder hgt or reach up to get something at home w/o pain. -functional activities reaching or scratching her back, reaching out to the side painfree. -improve upper body strength. -HEP Personal Factors Other Personal Factors That May Effect Osteoporosis, neck pain w/ Therapy/Recovery severe stenosis (constant R sided ms spasms). 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 PT-OP-C Subjective Start: 04/06/24 11:51 Freq: Status: Active Protocol: Document 04/18/24 08:19 LRN (Rec: 04/18/24 09:07 LRN [id number]) OP-PT Subjective Patient Comments Patient Comments Sore muscles. Doing TBand ex (lat pull down), feels she can do better and with less pain. In yoga doing thoracic rot ex, but not going into pain. PT-OP-E Functional Tests Start: 04/06/24 11:51 Freq: Status: Active Protocol: Document 04/11/24 09:04 LRN (Rec: 04/11/24 10:17 LRN [id number]) Functional Tests Apley's Scratch Test Action 1- Left Slight posterior of R GHJ Action 1- Right Spine of L scapula Action 2- Left T2 Action 2- Right T3 Action 3- Left T5 Action 3- Right T7 PT-OP-H Neuro Start: 04/06/24 11:51 Freq: Status: Active Protocol: Document 04/06/24 12:16 LRN (Rec: 04/06/24 13:09 LRN [id number]) Sensation Evaluation Gross Sensation Gross Sensation WNL PT-OP-J Posture/Palpation/Skin Start: 04/06/24 11:51 Freq: Status: Active Protocol: Document 04/06/24 12:16 LRN (Rec: 04/06/24 13:09 LRN [id number]) Posture Evaluation Position Standing L-Spine Posture Increased Lordosis Shoulder Posture (L) Forward,(L) Elevated Scapula Posture (L) Rotated Down,(L) Elevated Knee Posture (L) Genu Valgus,(R) Genu Valgus Ankle/Foot Posture (R) Pronated,(L) Supinated Comments Posture Comments Dowagers hump, T/S is C- curved w/apex on the left. PT-OP-K Range of Motion Start: 04/06/24 11:51 Freq: Status: Active Protocol: Document 04/13/24 07:38 LRN (Rec: 04/13/24 08:16 LRN [id number]) Shoulder Goniometric Range of Motion Shoulder Right Active Testing Position Standing Flexion 100 Comments ROM taken at max motion before worsening of pain. Left Active Testing Position Standing Flexion 100 Comments ROM taken at max motion before worsening of pain. PT-OP-M Strength Start: 04/06/24 11:51 Freq: Status: Active Protocol: Document 04/06/24 12:16 LRN (Rec: 04/06/24 13:09 [facility] [id number]) Shoulder Strength Shoulder Manual Muscle Testing Right Comments 5/5 generally Left Flexion 4 Good Abduction (C5) 2+ Poor+ External Rotation 4 Good Internal Rotation 3 Fair PT-OP-Q Treatments Start: 04/06/24 11:51 Freq: Status: Active Protocol: Document 04/18/24 08:19 LRN (Rec: 04/18/24 09:07 [facility] [id number]) Cardio Equipment Upper Body Ergometer (UBE) Duration (Minutes) 6 RPM 80 Seat Position 13 Height 3.5 Other cued no L shoulder pain onset Therapeutic Exercises Sidelying Exercises Shdr ER/opp side IR Sidelying Exercise Name L side focus Side bilateral Reps/Minutes 10x, 5x for ER & IR Standing Exercises Pec stretch Standing Exercise Name Corner stretch with arms in different hgts (50 deg's AB to start) Side bilateral Reps/Minutes x 4' Comments Much phys & v cuing for tolerated stretch positioning. Shoulder flex stretch Standing Exercise Name Arms up wall with hands together and hands apart and shldrs ER'd. Side bilateral Resistance 103 deg's flex Equipment Used Wall Reps/Minutes 5' Comments Phys & v cuing for scapular motion & stabilization on retn to start postion Therapeutic Activity Therapeutic Activity Picking objects off the ground Name Picking up objects and putting dog collars on. Reps/Minutes 5' Simulating lifting/tossing wood Name From ground to spouse mvmt Reps/Minutes 6' Comments Cued to keep back straight, use LE's and move legs, not twist to throw off to the side . Lfiting dishes up in cupboard Reps/Minutes 6' Comments Discussed and training to use step stool to get higher up to not have to lift arms so high yet. Self-Care/Home Management Treatment Activities Self-Care/Home Management Activities Issued & reviewed HEP: Sidelie shoulder ER/IR. Issued & reviewed handout for: Proper body mechanics for ADLs and Instructions for Body MEchanics Basics. PT-OP-T Assessment and Plan Start: 04/06/24 11:51 Freq: Status: Active Protocol: Document 04/18/24 08:19 LRN (Rec: 04/18/24 09:07 LRN [id number]) Physical Therapy Assessment Goals Three Impairment Decreased L shoulder strength Short Term Goal (STG) Pt will be able to improve upper body strength by tolerating lifting exercises with her L UE and show improved function per UE Quickdash score. STG Duration 05/04/24 Computer Lab Aide Goal (LTG) Pt will be able to pull a piece of equipment from above shoulder hgt with L arm, or reach up to get something at home w/o pain. LTG Duration 06/01/24 Two Impairment Decreased L shoulder painfree ROM Short Term Goal (STG) Pt will be educated and consistent with proper body mechanics for ADLs and able to perform 80% of full L shoulder AROM (flex & AB 144?, ER 72?, IR 56?) w/o pain. 04/18/24: Issued & educated handout: Proper body mechanics for ADLs and instructions for Body MEchanics Basics. STG Duration 05/04/24 progressed 04/18/24 (need perform pnfree 80% L shdr FROM) Longterm Goal (LTG) Pt rosalba be able to perform functional activities reaching or scratching her back, or reaching out to the side painfree. LTG Duration 06/01/24 One Impairment Lacks HEP Short Term Goal (STG) Pt will be educated & consistent with self care pain management and best nighttime positioning. 04/11/24: Discussed & issued RICE technique for pain mgmt. 04/18/24: Pt educated in nighttime positioning in sidelie and discussed sup lying, & pt reporting use of cryotherapy after home activity of tossing firewood. STG Duration 05/04/24 (04/18/24: MET GOAL) Computer Lab Aide Goal (LTG) Pt will be independent with a L neck/shoulder ROM and L shoulder/scapular/elbow strengthening program. 04/11/24: HEP: Corner pec stretch & shoulder flex with back of hands on wall. 04/13/24: I/S pt in scap stab ex: shdr wall flex (~100? with kurt shdr ER hold) and Lev 2 TB issued. Pt denies Latex allergy. 04/18/24: HEP: Sidelie shoulder ER/IR. Pt I/S in corner pec stretch. LTG Duration 06/01/24 progressed 04/18/24 Assessment Summary Assessment 59 yo female w/L RC dysfunction, possible tear, limited mobility & strength due to pain, especially overhead, chronic pain; also with R shoulder pain. Today, showed happiness at much less pain in L shouder as she is pt using RICE technique after home strenous activities and is having less pain. Pt more aware to not over stretch to cause pain. Wall slide L shoulder flex incr'd 3 deg's. Physical Therapy Plan Frequency and Duration Frequency of Treatment 2x/Week Duration of treatment (weeks) 8 Plan of Care Start Date 04/06/24 Plan of Care End Date 06/01/24 Next Visit Focus/Plan Next Note Type Treatment Note Next Visit Plan L RC (possible tear) rehab. Next: Assess results of nighttime positioning and Body mechanics training. Progress L shoulder ROM f/b active gravity resisted exercise, holding pt back from being aggressive with exercise. Manual: STM L neck/shoulder/ intrascap ms, JMT: ?ribs (7,8) , T/S. Ex: Scap stab, RC strengthening. Modalities: Estim/MH/Ice.
--- NOTE | 2024-04-25 15:51 | PT.OTN ---
Current Diagnoses Primary osteoarthritis, left shoulder (04/25/24) Incomplete rotator cuff tear or rupture of left shoulder, not specified as traumatic (04/25/24) Physical Therapy Treatment Note PT-OP-A Visit Information Start: 04/06/24 11:51 Freq: Status: Active Protocol: Document 04/25/24 09:00 LRN (Rec: 04/25/24 09:50 LRN [id number]) Out-Patient Physical Therapy Visit Information Visit Information Visit Type Treatment Note Visit Start Time 09:00 Visit Stop Time 09:45 Visit Number 5 Evaluation Information Evaluation Date 04/06/24 Precautions Precautions Per intake form: Osteoporosis , neck pain w/severe stenosis (constant R sided ms spasms), R forearm ORIF, umbilical hernia. Per pt: hx of L/S herniated discs. PT-OP-B Current Condition Start: 04/06/24 11:51 Freq: Status: Active Protocol: Document 04/06/24 12:16 LRN (Rec: 04/06/24 13:09 LRN [id number]) Current Condition History of Current Condition Onset Date 12/2022 Current Complaints L shoulder pain (R shoulder pain not approved for PT) History of Current Condition States in 2023 had Physical Therapy for L RC injury at [facility] in [facility] for 6-8 sessions, had + response and thought she was healed because she had full ROM, and didn't have the strength tested, but was playing pickle ball, able to do outside land management on large property, 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 In 12/2022 went on fishing trip and helped staff carry heavy boxes up a [place] and by the end of the trip her L shoulder was very painful. She had injured her R shoulder 7 months ago ( reports, not approved by L&I for treatment); therefore has been doing everything with her L shoulder; it now hurts again. Has tried to do ex's from her previous therapy. Saw Dr. Valadez and then had MRI ( results unknown). Since new onset of L shoulder pain she is limited to lifting to shoulder height or above because of pain. She is attending [facility] PT because she is now working in [employer]. Prior Treatments and Tests No new MRI's or X-rays since new onset of L shoulder pain. MRI done at [facility]; therefore results are not available. Has had chiro visits 10 yrs ago. Pt reports hx of Lumbar herniated disc but no longer has pain. 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 L shoulder pain till September 2023 Now restricted from doing UE activities to waist high. Lives in [place]. Seizure x 1 (10+ yrs ago). Treatment Goals Patient/Caregiver Goals Pt goals: -be able to pull a piece of equipment from above shoulder hgt or reach up to get something at home w/o pain. -functional activities reaching or scratching her back, reaching out to the side painfree. -improve upper body strength. -HEP Personal Factors Other Personal Factors That May Effect Osteoporosis, neck pain w/ Therapy/Recovery severe stenosis (constant R sided ms spasms). 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 PT-OP-C Subjective Start: 04/06/24 11:51 Freq: Status: Active Protocol: Document 04/25/24 09:00 LRN (Rec: 04/25/24 09:50 LRN [id number]) OP-PT Subjective Patient Comments Patient Comments Having a lot of R rib pain (to R of spine), that has worsened since replacing the water bottle cooler at work. Has been icing and asking for help. PT-OP-E Functional Tests Start: 04/06/24 11:51 Freq: Status: Active Protocol: Document 04/11/24 09:04 LRN (Rec: 04/11/24 10:17 LRN [id number]) Functional Tests Apley's Scratch Test Action 1- Left Slight posterior of R GHJ Action 1- Right Spine of L scapula Action 2- Left T2 Action 2- Right T3 Action 3- Left T5 Action 3- Right T7 PT-OP-H Neuro Start: 04/06/24 11:51 Freq: Status: Active Protocol: Document 04/06/24 12:16 LRN (Rec: 04/06/24 13:09 LRN [id number]) Sensation Evaluation Gross Sensation Gross Sensation WNL PT-OP-J Posture/Palpation/Skin Start: 04/06/24 11:51 Freq: Status: Active Protocol: Document 04/06/24 12:16 LRN (Rec: 04/06/24 13:09 LRN [id number]) Posture Evaluation Position Standing L-Spine Posture Increased Lordosis Shoulder Posture (L) Forward,(L) Elevated Scapula Posture (L) Rotated Down,(L) Elevated Knee Posture (L) Genu Valgus,(R) Genu Valgus Ankle/Foot Posture (R) Pronated,(L) Supinated Comments Posture Comments Dowagers hump, T/S is C- curved w/apex on the left. PT-OP-K Range of Motion Start: 04/06/24 11:51 Freq: Status: Active Protocol: Document 04/25/24 09:00 LRN (Rec: 04/25/24 09:50 LRN [id number]) Shoulder Goniometric Range of Motion Shoulder Right Active Testing Position Stand arm on wall Flexion 133 Comments Rib pain limited on R side Left Active Testing Position Stand arm on wall Flexion 133 PT-OP-M Strength Start: 04/06/24 11:51 Freq: Status: Active Protocol: Document 04/06/24 12:16 LRN (Rec: 04/06/24 13:09 LRN [id number]) Shoulder Strength Shoulder Manual Muscle Testing Right Comments 5/5 generally Left Flexion 4 Good Abduction (C5) 2+ Poor+ External Rotation 4 Good Internal Rotation 3 Fair PT-OP-Q Treatments Start: 04/06/24 11:51 Freq: Status: Active Protocol: Document 04/25/24 09:00 LRN (Rec: 04/25/24 09:50 LRN [id number]) Cardio Equipment Upper Body Ergometer (UBE) Duration (Minutes) 6 RPM 80 Seat Position 13 Height 3.5 Other cued no L shoulder pain onset Therapeutic Exercises Sidelying Exercises Open Book Sidelying Exercise Name R Rot with R arm flexed at elbow Side right Reps/Minutes 10 SH x 10 Comments Did trail to L side to determine best stretch to R T6 -T7-T8 intercostal Manual Therapy Treatment Soft Tissue Mobilization Intercostals Body Location R T6-T7-T8 Intensity/Depth Moderate Body Position Side/prone Joint Mobilizations Ribs & CVJ Joint Rib 7,8 & T4-T8 Direction Ribs elevation and T/S PA. Grade II Body Position Prone/side Self-Care/Home Management Treatment Activities Self-Care/Home Management Activities Reviewed and Issued handouts for Daily Activitied BOdy mechanics & OPen Book Stretch. PT-OP-T Assessment and Plan Start: 04/06/24 11:51 Freq: Status: Active Protocol: Document 04/25/24 09:00 LRN (Rec: 04/25/24 09:50 LRN [id number]) Physical Therapy Assessment Goals Three Impairment Decreased L shoulder strength Short Term Goal (STG) Pt will be able to improve upper body strength by tolerating lifting exercises with her L UE and show improved function per UE Quickdash score. STG Duration 05/04/24 Snf Goal (LTG) Pt will be able to pull a piece of equipment from above shoulder hgt with L arm, or reach up to get something at home w/o pain. LTG Duration 06/01/24 Two Impairment Decreased L shoulder painfree ROM Short Term Goal (STG) Pt will be educated and consistent with proper body mechanics for ADLs and able to perform 80% of full L shoulder AROM (flex & AB 144?, ER 72?, IR 56?) w/o pain. 04/18/24: Issued & educated handout: Proper body mechanics for ADLs and instructions for Body MEchanics Basics. STG Duration 05/04/24 progressed 04/18/24 (need perform pnfree 80% L shdr FROM) Machine Printer Goal (LTG) Pt rosalba be able to perform functional activities reaching or scratching her back, or reaching out to the side painfree. LTG Duration 06/01/24 One Impairment Lacks HEP Short Term Goal (STG) Pt will be educated & consistent with self care pain management and best nighttime positioning. 04/11/24: Discussed & issued RICE technique for pain mgmt. 04/18/24: Pt educated in nighttime positioning in sidelie and discussed sup lying, & pt reporting use of cryotherapy after home activity of tossing firewood. STG Duration 05/04/24 (04/18/24: MET GOAL) Machine Printer Goal (LTG) Pt will be independent with a L neck/shoulder ROM and L shoulder/scapular/elbow strengthening program. 04/11/24: HEP: Corner pec stretch & shoulder flex with back of hands on wall. 04/13/24: I/S pt in scap stab ex: shdr wall flex (~100? with kurt shdr ER hold) and Lev 2 TB issued. Pt denies Latex allergy. 04/18/24: HEP: Sidelie shoulder ER/IR. Pt I/S in corner pec stretch. LTG Duration 06/01/24 progressed 04/18/24 Assessment Summary Assessment 59 yo female w/L RC dysfunction, possible tear, limited mobility & strength due to pain, especially overhead, chronic pain; also with R shoulder pain. Today, pt attends reporting increase rib pain after replacing water cooler container at work with a new one by herself, so experiencing increased R mid back and intercostal rib pain (T6-T7, mild T7-T8). Was able to relax most of T6-T7-T8 intercostal ms tension ( lateral trunk region remained tight), and pt felt sore at end of treatment; therefore pt to ice at home. Lorne shoulder wall slide mobility improved. + response to use of pillows for nighttime positioning prior to flair up of R rib pain. Pt appears to be more aware of using proper body mechanics, but needs to limit her lifting weights. Physical Therapy Plan Frequency and Duration Frequency of Treatment 2x/Week Duration of treatment (weeks) 8 Plan of Care Start Date 04/06/24 Plan of Care End Date 06/01/24 Next Visit Focus/Plan Next Note Type Treatment Note Next Visit Plan L RC (possible tear) rehab. Next: Intercostal STM, and JMT as needed to reduce rib pain with use of UE's. Progress L shoulder ROM f/b active gravity resisted exercise, holding pt back from being aggressive with exercise. Manual: STM L neck/shoulder/ intrascap ms, JMT: ?ribs (7,8) , T/S. Ex: Scap stab, RC strengthening. Modalities: Estim/MH/Ice.
--- NOTE | 2024-04-25 18:11 | PT.OTN ---
Current Diagnoses Primary osteoarthritis, left shoulder (04/25/24) Incomplete rotator cuff tear or rupture of left shoulder, not specified as traumatic (04/25/24) Physical Therapy Treatment Note PT-OP-A Visit Information Start: 04/06/24 11:51 Freq: Status: Active Protocol: Document 04/25/24 09:00 LRN (Rec: 04/25/24 09:50 LRN [id number]) Out-Patient Physical Therapy Visit Information Visit Information Visit Type Treatment Note Visit Start Time 09:00 Visit Stop Time 09:45 Visit Number 5 Evaluation Information Evaluation Date 04/06/24 Precautions Precautions Per intake form: Osteoporosis , neck pain w/severe stenosis (constant R sided ms spasms), R forearm ORIF, umbilical hernia. Per pt: hx of L/S herniated discs. PT-OP-B Current Condition Start: 04/06/24 11:51 Freq: Status: Active Protocol: Document 04/06/24 12:16 LRN (Rec: 04/06/24 13:09 LRN [id number]) Current Condition History of Current Condition Onset Date 12/2022 Current Complaints L shoulder pain (R shoulder pain not approved for PT) History of Current Condition States in 2023 had Physical Therapy for L RC injury at [facility] in [facility] for 6-8 sessions, had + response and thought she was healed because she had full ROM, and didn't have the strength tested, but was playing pickle ball, able to do outside land management on large property, 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 In 12/2022 went on fishing trip and helped staff carry heavy boxes up a [place] and by the end of the trip her L shoulder was very painful. She had injured her R shoulder 7 months ago ( reports, not approved by L&I for treatment); therefore has been doing everything with her L shoulder; it now hurts again. Has tried to do ex's from her previous therapy. Saw Dr. Valadez and then had MRI ( results unknown). Since new onset of L shoulder pain she is limited to lifting to shoulder height or above because of pain. She is attending [facility] PT because she is now working in [employer]. Prior Treatments and Tests No new MRI's or X-rays since new onset of L shoulder pain. MRI done at [facility]; therefore results are not available. Has had chiro visits 10 yrs ago. Pt reports hx of Lumbar herniated disc but no longer has pain. 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 L shoulder pain till September 2023 Now restricted from doing UE activities to waist high. Lives in [place]. Seizure x 1 (10+ yrs ago). Treatment Goals Patient/Caregiver Goals Pt goals: -be able to pull a piece of equipment from above shoulder hgt or reach up to get something at home w/o pain. -functional activities reaching or scratching her back, reaching out to the side painfree. -improve upper body strength. -HEP Personal Factors Other Personal Factors That May Effect Osteoporosis, neck pain w/ Therapy/Recovery severe stenosis (constant R sided ms spasms). 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 PT-OP-C Subjective Start: 04/06/24 11:51 Freq: Status: Active Protocol: Document 04/25/24 09:00 LRN (Rec: 04/25/24 09:50 LRN [id number]) OP-PT Subjective Patient Comments Patient Comments Having a lot of R rib pain (to R of spine), that has worsened since replacing the water bottle cooler at work. Has been icing and asking for help. PT-OP-E Functional Tests Start: 04/06/24 11:51 Freq: Status: Active Protocol: Document 04/11/24 09:04 LRN (Rec: 04/11/24 10:17 LRN [id number]) Functional Tests Apley's Scratch Test Action 1- Left Slight posterior of R GHJ Action 1- Right Spine of L scapula Action 2- Left T2 Action 2- Right T3 Action 3- Left T5 Action 3- Right T7 PT-OP-H Neuro Start: 04/06/24 11:51 Freq: Status: Active Protocol: Document 04/06/24 12:16 LRN (Rec: 04/06/24 13:09 LRN [id number]) Sensation Evaluation Gross Sensation Gross Sensation WNL PT-OP-J Posture/Palpation/Skin Start: 04/06/24 11:51 Freq: Status: Active Protocol: Document 04/06/24 12:16 LRN (Rec: 04/06/24 13:09 LRN [id number]) Posture Evaluation Position Standing L-Spine Posture Increased Lordosis Shoulder Posture (L) Forward,(L) Elevated Scapula Posture (L) Rotated Down,(L) Elevated Knee Posture (L) Genu Valgus,(R) Genu Valgus Ankle/Foot Posture (R) Pronated,(L) Supinated Comments Posture Comments Dowagers hump, T/S is C- curved w/apex on the left. PT-OP-K Range of Motion Start: 04/06/24 11:51 Freq: Status: Active Protocol: Document 04/25/24 09:00 LRN (Rec: 04/25/24 09:50 LRN [id number]) Shoulder Goniometric Range of Motion Shoulder Right Active Testing Position Stand arm on wall Flexion 133 Comments Rib pain limited on R side Left Active Testing Position Stand arm on wall Flexion 133 PT-OP-M Strength Start: 04/06/24 11:51 Freq: Status: Active Protocol: Document 04/06/24 12:16 LRN (Rec: 04/06/24 13:09 LRN [id number]) Shoulder Strength Shoulder Manual Muscle Testing Right Comments 5/5 generally Left Flexion 4 Good Abduction (C5) 2+ Poor+ External Rotation 4 Good Internal Rotation 3 Fair PT-OP-Q Treatments Start: 04/06/24 11:51 Freq: Status: Active Protocol: Document 04/25/24 09:00 LRN (Rec: 04/25/24 09:50 LRN [id number]) Cardio Equipment Upper Body Ergometer (UBE) Duration (Minutes) 6 RPM 80 Seat Position 13 Height 3.5 Other cued no L shoulder pain onset Therapeutic Exercises Sidelying Exercises Open Book Sidelying Exercise Name R Rot with R arm flexed at elbow Side right Reps/Minutes 10 SH x 10 Comments Did trail to L side to determine best stretch to R T6 -T7-T8 intercostal Manual Therapy Treatment Soft Tissue Mobilization Intercostals Body Location R T6-T7-T8 Intensity/Depth Moderate Body Position Side/prone Joint Mobilizations Ribs & CVJ Joint Rib 7,8 & T4-T8 Direction Ribs elevation and T/S PA. Grade II Body Position Prone/side Self-Care/Home Management Treatment Activities Self-Care/Home Management Activities Reviewed and Issued handouts for Daily Activitied BOdy mechanics & OPen Book Stretch. PT-OP-T Assessment and Plan Start: 04/06/24 11:51 Freq: Status: Active Protocol: Document 04/25/24 09:00 LRN (Rec: 04/25/24 09:50 LRN [id number]) Physical Therapy Assessment Goals Three Impairment Decreased L shoulder strength Short Term Goal (STG) Pt will be able to improve upper body strength by tolerating lifting exercises with her L UE and show improved function per UE Quickdash score. STG Duration 05/04/24 Jail Goal (LTG) Pt will be able to pull a piece of equipment from above shoulder hgt with L arm, or reach up to get something at home w/o pain. LTG Duration 06/01/24 Two Impairment Decreased L shoulder painfree ROM Short Term Goal (STG) Pt will be educated and consistent with proper body mechanics for ADLs and able to perform 80% of full L shoulder AROM (flex & AB 144?, ER 72?, IR 56?) w/o pain. 04/18/24: Issued & educated handout: Proper body mechanics for ADLs and instructions for Body MEchanics Basics. STG Duration 05/04/24 progressed 04/18/24 (need perform pnfree 80% L shdr FROM) Nursing Specialist Goal (LTG) Pt rosalba be able to perform functional activities reaching or scratching her back, or reaching out to the side painfree. LTG Duration 06/01/24 One Impairment Lacks HEP Short Term Goal (STG) Pt will be educated & consistent with self care pain management and best nighttime positioning. 04/11/24: Discussed & issued RICE technique for pain mgmt. 04/18/24: Pt educated in nighttime positioning in sidelie and discussed sup lying, & pt reporting use of cryotherapy after home activity of tossing firewood. STG Duration 05/04/24 (04/18/24: MET GOAL) Nursing Specialist Goal (LTG) Pt will be independent with a L neck/shoulder ROM and L shoulder/scapular/elbow strengthening program. 04/11/24: HEP: Corner pec stretch & shoulder flex with back of hands on wall. 04/13/24: I/S pt in scap stab ex: shdr wall flex (~100? with kurt shdr ER hold) and Lev 2 TB issued. Pt denies Latex allergy. 04/18/24: HEP: Sidelie shoulder ER/IR. Pt I/S in corner pec stretch. LTG Duration 06/01/24 progressed 04/18/24 Assessment Summary Assessment 59 yo female w/L RC dysfunction, possible tear, limited mobility & strength due to pain, especially overhead, chronic pain; also with R shoulder pain. Today, pt attends reporting increase rib pain after replacing water cooler container at work with a new one by herself, so experiencing increased R mid back and intercostal rib pain (T6-T7, mild T7-T8). Was able to relax most of T6-T7-T8 intercostal ms tension ( lateral trunk region remained tight), and pt felt sore at end of treatment; therefore pt to ice at home. Lorne shoulder wall slide mobility improved. + response to use of pillows for nighttime positioning prior to flair up of R rib pain. Pt appears to be more aware of using proper body mechanics, but needs to limit her lifting weights. Physical Therapy Plan Frequency and Duration Frequency of Treatment 2x/Week Duration of treatment (weeks) 8 Plan of Care Start Date 04/06/24 Plan of Care End Date 06/01/24 Next Visit Focus/Plan Next Note Type Treatment Note Next Visit Plan L RC (possible tear) rehab. Next: Intercostal STM, and JMT as needed to reduce rib pain with use of UE's. Progress L shoulder ROM f/b active gravity resisted exercise, holding pt back from being aggressive with exercise. Manual: STM L neck/shoulder/ intrascap ms, JMT: ?ribs (7,8) , T/S. Ex: Scap stab, RC strengthening. Modalities: Estim/MH/Ice.
--- NOTE | 2024-04-27 13:05 | PT.OTN ---
Current Diagnoses Primary osteoarthritis, left shoulder (04/27/24) Incomplete rotator cuff tear or rupture of left shoulder, not specified as traumatic (04/27/24) Physical Therapy Treatment Note PT-OP-A Visit Information Start: 04/06/24 11:51 Freq: Status: Active Protocol: Document 04/27/24 09:49 LRN (Rec: 04/27/24 10:41 LRN [id number]) Out-Patient Physical Therapy Visit Information Visit Information Visit Type Treatment Note Visit Start Time 09:49 Visit Stop Time 10:34 Visit Number 6 Evaluation Information Evaluation Date 04/06/24 Precautions Precautions Per intake form: Osteoporosis , neck pain w/severe stenosis (constant R sided ms spasms), R forearm ORIF, umbilical hernia. Per pt: hx of L/S herniated discs. PT-OP-B Current Condition Start: 04/06/24 11:51 Freq: Status: Active Protocol: Document 04/06/24 12:16 LRN (Rec: 04/06/24 13:09 LRN [id number]) Current Condition History of Current Condition Onset Date 12/2022 Current Complaints L shoulder pain (R shoulder pain not approved for PT) History of Current Condition States in 2023 had Physical Therapy for L RC injury at [facility] in [facility] for 6-8 sessions, had + response and thought she was healed because she had full ROM, and didn't have the strength tested, but was playing pickle ball, able to do outside land management on large property, 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 In 12/2022 went on fishing trip and helped staff carry heavy boxes up a [place] and by the end of the trip her L shoulder was very painful. She had injured her R shoulder 7 months ago ( reports, not approved by L&I for treatment); therefore has been doing everything with her L shoulder; it now hurts again. Has tried to do ex's from her previous therapy. Saw Dr. Valadez and then had MRI ( results unknown). Since new onset of L shoulder pain she is limited to lifting to shoulder height or above because of pain. She is attending [facility] PT because she is now working in [employer]. Prior Treatments and Tests No new MRI's or X-rays since new onset of L shoulder pain. MRI done at [facility]; therefore results are not available. Has had chiro visits 10 yrs ago. Pt reports hx of Lumbar herniated disc but no longer has pain. 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 L shoulder pain till September 2023 Now restricted from doing UE activities to waist high. Lives in [place]. Seizure x 1 (10+ yrs ago). Treatment Goals Patient/Caregiver Goals Pt goals: -be able to pull a piece of equipment from above shoulder hgt or reach up to get something at home w/o pain. -functional activities reaching or scratching her back, reaching out to the side painfree. -improve upper body strength. -HEP Personal Factors Other Personal Factors That May Effect Osteoporosis, neck pain w/ Therapy/Recovery severe stenosis (constant R sided ms spasms). 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 PT-OP-C Subjective Start: 04/06/24 11:51 Freq: Status: Active Protocol: Document 04/27/24 09:49 LRN (Rec: 04/27/24 10:41 LRN [id number]) OP-PT Subjective Patient Comments Patient Comments States her Thoracic rib pain is much better, 1-2/10, R shoulder is more painful in the front of the shoulders ( biceps tendon location); states the back is feeling better, but the shoulders about the same. PT-OP-E Functional Tests Start: 04/06/24 11:51 Freq: Status: Active Protocol: Document 04/11/24 09:04 LRN (Rec: 04/11/24 10:17 LRN [id number]) Functional Tests Apley's Scratch Test Action 1- Left Slight posterior of R GHJ Action 1- Right Spine of L scapula Action 2- Left T2 Action 2- Right T3 Action 3- Left T5 Action 3- Right T7 PT-OP-H Neuro Start: 04/06/24 11:51 Freq: Status: Active Protocol: Document 04/06/24 12:16 LRN (Rec: 04/06/24 13:09 LRN [id number]) Sensation Evaluation Gross Sensation Gross Sensation WNL PT-OP-J Posture/Palpation/Skin Start: 04/06/24 11:51 Freq: Status: Active Protocol: Document 04/06/24 12:16 LRN (Rec: 04/06/24 13:09 LRN [id number]) Posture Evaluation Position Standing L-Spine Posture Increased Lordosis Shoulder Posture (L) Forward,(L) Elevated Scapula Posture (L) Rotated Down,(L) Elevated Knee Posture (L) Genu Valgus,(R) Genu Valgus Ankle/Foot Posture (R) Pronated,(L) Supinated Comments Posture Comments Dowagers hump, T/S is C- curved w/apex on the left. PT-OP-K Range of Motion Start: 04/06/24 11:51 Freq: Status: Active Protocol: Document 04/25/24 09:00 LRN (Rec: 04/25/24 09:50 LRN [id number]) Shoulder Goniometric Range of Motion Shoulder Right Active Testing Position Stand arm on wall Flexion 133 Comments Rib pain limited on R side Left Active Testing Position Stand arm on wall Flexion 133 PT-OP-M Strength Start: 04/06/24 11:51 Freq: Status: Active Protocol: Document 04/06/24 12:16 LRN (Rec: 04/06/24 13:09 LRN [id number]) Shoulder Strength Shoulder Manual Muscle Testing Right Comments 5/5 generally Left Flexion 4 Good Abduction (C5) 2+ Poor+ External Rotation 4 Good Internal Rotation 3 Fair PT-OP-Q Treatments Start: 04/06/24 11:51 Freq: Status: Active Protocol: Document 04/27/24 09:49 LRN (Rec: 04/27/24 10:41 LRN [id number]) Therapeutic Exercises Supine Exercises Pec stretch Supine Exercise Name Pec stretch - stretch limited by L hip paih. Equipment Used 1/2 roll Reps/Minutes 2' Comments Extra time to get into tolerable position of stretch Sidelying Exercises Open Book Sidelying Exercise Name Head leading the shoulder with elbow bent 90 deg's. Side bilateral Reps/Minutes 10x Comments R rot is better than L, R arm straight, L elbow flexed Shdr ER/opp side IR Sidelying Exercise Name L side focus (L ER to neutral, R ER to 70 deg's) Side bilateral Reps/Minutes 15x each (L ER to neutral, R ER to 70 deg's) Comments Cued painfree mvmt Sitting Exercises Shoulder Rolls Sitting Exercise Name Mvmt for for relaxation (up and back). Side bilateral Comments Having R Costovertebral pain at rib 2, or 3. Manual Therapy Treatment Soft Tissue Mobilization Neck Body Location R UT Mobilization Type Sustained Pressure Intensity/Depth Moderate Body Position Supine Scalenes Body Location R Anterior Scalanes-teaching pt self STM Mobilization Type Sustained Pressure,Trigger Point Release Intensity/Depth Superficial Body Position Supine Intercostals Body Location R T6-T7-T8 Mobilization Type Strumming,Sustained Pressure Intensity/Depth Moderate Body Position Side Comments Table not available for prone treatment. PT-OP-T Assessment and Plan Start: 04/06/24 11:51 Freq: Status: Active Protocol: Document 04/27/24 09:49 LRN (Rec: 04/27/24 10:41 LRN [id number]) Physical Therapy Assessment Assessment Summary Assessment Today, pt feeling better in ribs, pain c/o in R biceps tendon/lateral Deltoid border. The pt responded well to STM but L LB did not tolerate well the pec stretch on 03/09 roll afterwards. Pt ended with discomfort in L LB. Physical Therapy Plan Frequency and Duration Frequency of Treatment 2x/Week Duration of treatment (weeks) 8 Plan of Care Start Date 04/06/24 Plan of Care End Date 06/01/24 Next Visit Focus/Plan Next Note Type Treatment Note Next Visit Plan L RC (possible tear) rehab. Next: Intercostal STM, and JMT as needed to reduce rib pain with use of UE's. Add treatment: US to krissy biceps tendon. Progress L shoulder ROM f/b active gravity resisted exercise, holding pt back from being aggressive with exercise. Manual: STM L neck/shoulder/ intrascap ms, JMT: ?ribs (7,8) , T/S. Ex: Scap stab, RC strengthening. Modalities: Estim/MH/Ice.
--- NOTE | 2024-05-02 14:36 | PT.OTN ---
Current Diagnoses Primary osteoarthritis, left shoulder (05/02/24) Incomplete rotator cuff tear or rupture of left shoulder, not specified as traumatic (05/02/24) Physical Therapy Treatment Note PT-OP-A Visit Information Start: 04/06/24 11:51 Freq: Status: Active Protocol: Document 05/02/24 13:48 SP (Rec: 05/02/24 14:36 SP [id number]) Out-Patient Physical Therapy Visit Information Visit Information Visit Type Treatment Note Visit Start Time 13:48 Visit Stop Time 14:36 Visit Number 7 Number of AGENCY RECRUITER Visits 1 Evaluation Information Evaluation Date 04/06/24 Precautions Precautions Per intake form: Osteoporosis , neck pain w/severe stenosis (constant R sided ms spasms), R forearm ORIF, umbilical hernia. Per pt: hx of L/S herniated discs. PT-OP-B Current Condition Start: 04/06/24 11:51 Freq: Status: Active Protocol: Document 04/06/24 12:16 LRN (Rec: 04/06/24 13:09 LRN [id number]) Current Condition History of Current Condition Onset Date 12/2022 Current Complaints L shoulder pain (R shoulder pain not approved for PT) History of Current Condition States in 2023 had Physical Therapy for L RC injury at [facility] in [facility] for 6-8 sessions, had + response and thought she was healed because she had full ROM, and didn't have the strength tested, but was playing pickle ball, able to do outside land management on large property, 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 In 12/2022 went on fishing trip and helped staff carry heavy boxes up a [place] and by the end of the trip her L shoulder was very painful. She had injured her R shoulder 7 months ago ( reports, not approved by L&I for treatment); therefore has been doing everything with her L shoulder; it now hurts again. Has tried to do ex's from her previous therapy. Saw Dr. Valadez and then had MRI ( results unknown). Since new onset of L shoulder pain she is limited to lifting to shoulder height or above because of pain. She is attending [facility] PT because she is now working in [employer]. Prior Treatments and Tests No new MRI's or X-rays since new onset of L shoulder pain. MRI done at [facility]; therefore results are not available. Has had chiro visits 10 yrs ago. Pt reports hx of Lumbar herniated disc but no longer has pain. 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 L shoulder pain till September 2023 Now restricted from doing UE activities to waist high. Lives in [place]. Seizure x 1 (10+ yrs ago). Treatment Goals Patient/Caregiver Goals Pt goals: -be able to pull a piece of equipment from above shoulder hgt or reach up to get something at home w/o pain. -functional activities reaching or scratching her back, reaching out to the side painfree. -improve upper body strength. -HEP Personal Factors Other Personal Factors That May Effect Osteoporosis, neck pain w/ Therapy/Recovery severe stenosis (constant R sided ms spasms). 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 PT-OP-C Subjective Start: 04/06/24 11:51 Freq: Status: Active Protocol: Document 05/02/24 13:48 SP (Rec: 05/02/24 14:36 SP [id number]) OP-PT Subjective Patient Comments Patient Comments Pt reports way less R lateral rib pain since last tx but still there. Was out of town for past 4 days and more sore from the drive. Neck tightness but not pain. PT-OP-E Functional Tests Start: 04/06/24 11:51 Freq: Status: Active Protocol: Document 04/11/24 09:04 LRN (Rec: 04/11/24 10:17 LRN [id number]) Functional Tests Apley's Scratch Test Action 1- Left Slight posterior of R GHJ Action 1- Right Spine of L scapula Action 2- Left T2 Action 2- Right T3 Action 3- Left T5 Action 3- Right T7 PT-OP-H Neuro Start: 04/06/24 11:51 Freq: Status: Active Protocol: Document 04/06/24 12:16 LRN (Rec: 04/06/24 13:09 LRN [id number]) Sensation Evaluation Gross Sensation Gross Sensation WNL PT-OP-J Posture/Palpation/Skin Start: 04/06/24 11:51 Freq: Status: Active Protocol: Document 04/06/24 12:16 LRN (Rec: 04/06/24 13:09 LRN [id number]) Posture Evaluation Position Standing L-Spine Posture Increased Lordosis Shoulder Posture (L) Forward,(L) Elevated Scapula Posture (L) Rotated Down,(L) Elevated Knee Posture (L) Genu Valgus,(R) Genu Valgus Ankle/Foot Posture (R) Pronated,(L) Supinated Comments Posture Comments Dowagers hump, T/S is C- curved w/apex on the left. PT-OP-K Range of Motion Start: 04/06/24 11:51 Freq: Status: Active Protocol: Document 04/25/24 09:00 LRN (Rec: 04/25/24 09:50 LRN [id number]) Shoulder Goniometric Range of Motion Shoulder Right Active Testing Position Stand arm on wall Flexion 133 Comments Rib pain limited on R side Left Active Testing Position Stand arm on wall Flexion 133 PT-OP-M Strength Start: 04/06/24 11:51 Freq: Status: Active Protocol: Document 04/06/24 12:16 LRN (Rec: 04/06/24 13:09 LRN [id number]) Shoulder Strength Shoulder Manual Muscle Testing Right Comments 5/5 generally Left Flexion 4 Good Abduction (C5) 2+ Poor+ External Rotation 4 Good Internal Rotation 3 Fair PT-OP-Q Treatments Start: 04/06/24 11:51 Freq: Status: Active Protocol: Document 05/02/24 13:48 SP (Rec: 05/02/24 14:36 SP [id number]) Therapeutic Exercises Supine Exercises Pec stretch Supine Exercise Name Pec stretch, serratus press Equipment Used noodle Reps/Minutes 10 reps Comments Extra time to get into tolerable position of stretch Sidelying Exercises Open Book Sidelying Exercise Name arm then scap post/inf glide, TS rotation /c head Side bilateral Reps/Minutes 10x, 2 breath last 2 reps Comments R rot is better than L, R arm straight, L elbow flexed/ hand on head Shdr ER/opp side IR Sidelying Exercise Name L side focus (L ER to neutral, R ER to 70 deg's) Side bilateral Reps/Minutes 15x each (L ER to neutral, R ER to 70 deg's) Comments Cued painfree mvmt Manual Therapy Treatment Consent Patient gave verbal consent for manual Yes treatment Soft Tissue Mobilization B shld Body Location R>L pec minor, major, coracobracialis, bicep Mobilization Type Rolling,Sustained Pressure, Other Intensity/Depth Moderate Body Position Supine Comments STMs and MWM breath /c pec and punching motion, humeral IR/ER cor. brac, elbow flex/ ext bicep. Neck Body Location R UT, LS, cervical paraspinals Mobilization Type Rolling,Sustained Pressure, Other Intensity/Depth Moderate Body Position Supine Comments STMs and MWM head nods/turns with discusssion ed self use S cane (forgot review end tx) Scalenes Body Location R Anterior Scalanes-teaching pt self STM Mobilization Type Sustained Pressure,Other Intensity/Depth Superficial Body Position Supine Comments STMs and MWM stretch positioning Intercostals Body Location R T6-T7-T8 Mobilization Type Rolling,Sustained Pressure, Other Intensity/Depth Moderate Body Position Side Comments rolling, sustained pressure with breath then ribcage mobility pressure with exhale, resisted inhale then release for allow recoil PT-OP-T Assessment and Plan Start: 04/06/24 11:51 Freq: Status: Active Protocol: Document 05/02/24 13:48 SP (Rec: 05/02/24 14:36 SP [id number]) Physical Therapy Assessment Goals Three Impairment Decreased L shoulder strength Short Term Goal (STG) Pt will be able to improve upper body strength by tolerating lifting exercises with her L UE and show improved function per UE Quickdash score. STG Duration 05/04/24 Longterm Goal (LTG) Pt will be able to pull a piece of equipment from above shoulder hgt with L arm, or reach up to get something at home w/o pain. LTG Duration 06/01/24 Two Impairment Decreased L shoulder painfree ROM Short Term Goal (STG) Pt will be educated and consistent with proper body mechanics for ADLs and able to perform 80% of full L shoulder AROM (flex & AB 144?, ER 72?, IR 56?) w/o pain. 04/18/24: Issued & educated handout: Proper body mechanics for ADLs and instructions for Body MEchanics Basics. STG Duration 05/04/24 progressed 04/18/24 (need perform pnfree 80% L shdr FROM) Hand Tube Winder Goal (LTG) Pt rosalba be able to perform functional activities reaching or scratching her back, or reaching out to the side painfree. LTG Duration 06/01/24 One Impairment Lacks HEP Short Term Goal (STG) Pt will be educated & consistent with self care pain management and best nighttime positioning. 04/11/24: Discussed & issued RICE technique for pain mgmt. 04/18/24: Pt educated in nighttime positioning in sidelie and discussed sup lying, & pt reporting use of cryotherapy after home activity of tossing firewood. STG Duration 05/04/24 (04/18/24: MET GOAL) Longterm Goal (LTG) Pt will be independent with a L neck/shoulder ROM and L shoulder/scapular/elbow strengthening program. 04/11/24: HEP: Corner pec stretch & shoulder flex with back of hands on wall. 04/13/24: I/S pt in scap stab ex: shdr wall flex (~100? with kurt shdr ER hold) and Lev 2 TB issued. Pt denies Latex allergy. 04/18/24: HEP: Sidelie shoulder ER/IR. Pt I/S in corner pec stretch. 05/02/24: added serratus press over noodle. (no HO couldn't print, look next tx) LTG Duration 06/01/24 progressed 05/02/24 Assessment Summary Assessment Pt good response to manual with ed on self application MWM (see cuing ed). Cues for segmental GH and scapular glide during open book for fluid glide mobility vs head stiff with arm and scap. Improved L UE open book hand on head able gain more HABD ROM. Initiated supine over noodle (has rolled up yoga mat or pipe insulation can use) for scapular mobilty pec stretch and added serratus press. Physical Therapy Plan Frequency and Duration Frequency of Treatment 2x/Week Duration of treatment (weeks) 8 Plan of Care Start Date 04/06/24 Plan of Care End Date 06/01/24 Therapeutic Interventions Therapeutic Interventions Home Exercise Program,Joint Mobilizations,Manual Therapy, Neuromuscular Re-education, Self-Care/Home Management,Soft Tissue Mobilization,Taping, Therapeutic Activities, Therapeutic Exercises Modalities Cold Pack/Ice Massage,Electric Stimulation,Hot Packs Next Visit Focus/Plan Next Note Type Treatment Note Next Visit Plan L RC (possible tear) rehab. Continue: Intercostal STM R lateral ribcage, and JMT as needed to reduce rib pain with use of UE's. Add treatment: US to krissy biceps tendon. Progress L shoulder ROM f/b active gravity resisted exercise, holding pt back from being aggressive with exercise. Manual: STM L neck/shoulder/ intrascap ms, JMT: ?ribs (7,8) , T/S. Ex: Scap stab, RC strengthening. Modalities: Estim/MH/Ice.
--- NOTE | 2024-05-04 14:37 | PT.OTN ---
Current Diagnoses Primary osteoarthritis, left shoulder (05/04/24) Incomplete rotator cuff tear or rupture of left shoulder, not specified as traumatic (05/04/24) Physical Therapy Treatment Note PT-OP-A Visit Information Start: 04/06/24 11:51 Freq: Status: Active Protocol: Document 05/04/24 13:47 SP (Rec: 05/04/24 14:37 SP [id number]) Out-Patient Physical Therapy Visit Information Visit Information Visit Type Treatment Note Visit Start Time 13:47 Visit Stop Time 14:37 Visit Number 8 Number of SEWING MACHINE TESTER Visits 2 Evaluation Information Evaluation Date 04/06/24 Precautions Precautions Per intake form: Osteoporosis , neck pain w/severe stenosis (constant R sided ms spasms), R forearm ORIF, umbilical hernia. Per pt: hx of L/S herniated discs. PT-OP-B Current Condition Start: 04/06/24 11:51 Freq: Status: Active Protocol: Document 04/06/24 12:16 LRN (Rec: 04/06/24 13:09 LRN [id number]) Current Condition History of Current Condition Onset Date 12/2022 Current Complaints L shoulder pain (R shoulder pain not approved for PT) History of Current Condition States in 2023 had Physical Therapy for L RC injury at [facility] in [facility] for 6-8 sessions, had + response and thought she was healed because she had full ROM, and didn't have the strength tested, but was playing pickle ball, able to do outside land management on large property, 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 In 12/2022 went on fishing trip and helped staff carry heavy boxes up a [place] and by the end of the trip her L shoulder was very painful. She had injured her R shoulder 7 months ago ( reports, not approved by L&I for treatment); therefore has been doing everything with her L shoulder; it now hurts again. Has tried to do ex's from her previous therapy. Saw Dr. Valadez and then had MRI ( results unknown). Since new onset of L shoulder pain she is limited to lifting to shoulder height or above because of pain. She is attending [facility] PT because she is now working in [employer]. Prior Treatments and Tests No new MRI's or X-rays since new onset of L shoulder pain. MRI done at [facility]; therefore results are not available. Has had chiro visits 10 yrs ago. Pt reports hx of Lumbar herniated disc but no longer has pain. 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 L shoulder pain till September 2023 Now restricted from doing UE activities to waist high. Lives in [place]. Seizure x 1 (10+ yrs ago). Treatment Goals Patient/Caregiver Goals Pt goals: -be able to pull a piece of equipment from above shoulder hgt or reach up to get something at home w/o pain. -functional activities reaching or scratching her back, reaching out to the side painfree. -improve upper body strength. -HEP Personal Factors Other Personal Factors That May Effect Osteoporosis, neck pain w/ Therapy/Recovery severe stenosis (constant R sided ms spasms). 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 PT-OP-C Subjective Start: 04/06/24 11:51 Freq: Status: Active Protocol: Document 05/04/24 13:47 SP (Rec: 05/04/24 14:37 SP [id number]) OP-PT Subjective Patient Comments Patient Comments Pt reports still needed R lateral ribcage manual. The new open book and pec stretch and Serratus press helpful. Trialed a plank at work (fun activity together) and was suprised could hold position short time no pain. PT-OP-E Functional Tests Start: 04/06/24 11:51 Freq: Status: Active Protocol: Document 04/11/24 09:04 LRN (Rec: 04/11/24 10:17 LRN [id number]) Functional Tests Apley's Scratch Test Action 1- Left Slight posterior of R GHJ Action 1- Right Spine of L scapula Action 2- Left T2 Action 2- Right T3 Action 3- Left T5 Action 3- Right T7 PT-OP-H Neuro Start: 04/06/24 11:51 Freq: Status: Active Protocol: Document 04/06/24 12:16 LRN (Rec: 04/06/24 13:09 LRN [id number]) Sensation Evaluation Gross Sensation Gross Sensation WNL PT-OP-J Posture/Palpation/Skin Start: 04/06/24 11:51 Freq: Status: Active Protocol: Document 04/06/24 12:16 LRN (Rec: 04/06/24 13:09 LRN [id number]) Posture Evaluation Position Standing L-Spine Posture Increased Lordosis Shoulder Posture (L) Forward,(L) Elevated Scapula Posture (L) Rotated Down,(L) Elevated Knee Posture (L) Genu Valgus,(R) Genu Valgus Ankle/Foot Posture (R) Pronated,(L) Supinated Comments Posture Comments Dowagers hump, T/S is C- curved w/apex on the left. PT-OP-K Range of Motion Start: 04/06/24 11:51 Freq: Status: Active Protocol: Document 04/25/24 09:00 LRN (Rec: 04/25/24 09:50 LRN [id number]) Shoulder Goniometric Range of Motion Shoulder Right Active Testing Position Stand arm on wall Flexion 133 Comments Rib pain limited on R side Left Active Testing Position Stand arm on wall Flexion 133 PT-OP-M Strength Start: 04/06/24 11:51 Freq: Status: Active Protocol: Document 04/06/24 12:16 LRN (Rec: 04/06/24 13:09 LRN [id number]) Shoulder Strength Shoulder Manual Muscle Testing Right Comments 5/5 generally Left Flexion 4 Good Abduction (C5) 2+ Poor+ External Rotation 4 Good Internal Rotation 3 Fair PT-OP-Q Treatments Start: 04/06/24 11:51 Freq: Status: Active Protocol: Document 05/04/24 13:47 SP (Rec: 05/04/24 14:37 SP [id number]) Therapeutic Exercises Supine Exercises noodle Supine Exercise Name Reviewed: serratus press, ER- added to HEP (declined HO) Side left Resistance AROM: B UEs holding another noodle SP, AROM ER Equipment Used spine along noodle, folded towel under L humerus Reps/Minutes 5 reps each Comments Improved range in to ER L with elevation humerus Pec stretch Supine Exercise Name Pec stretch Side bilateral Equipment Used spine along noodle Reps/Minutes 10 reps each Comments Time to get into tolerable position of stretch Sidelying Exercises Shld ABD Side right Resistance AROM Comments during manual Open Book Sidelying Exercise Name arm then scap post/inf glide, TS rotation /c head Side bilateral Equipment Used L hand on head (limited shld range) Reps/Minutes 10x, 2 breath last 2 reps Comments reports tingling R lateral ribcage at spine upper LS> upper TS, R open book Manual Therapy Treatment Consent Patient gave verbal consent for manual Yes treatment Soft Tissue Mobilization TS/LS Body Location R ES Mobilization Type Myofascial Release,Rolling Body Position Sidelying Abdominals Body Location R oblique, RAb Mobilization Type Myofascial Release,Sustained Pressure,Other Intensity/Depth Moderate Body Position Hooklying Comments MFR, inferior R ribcage at lateral border of RAb, gentle pressure sink in with exhale breath Neck Body Location R UT, LS Mobilization Type Rolling,Sustained Pressure, Other Intensity/Depth Moderate Body Position L SL Comments STMs Scalenes Body Location R Anterior Scalanes Mobilization Type Sustained Pressure,Other Intensity/Depth Superficial Body Position Supine Comments STMs, MWM /c breath exhale at 1st rib Intercostals Body Location R T7-T8-9 Mobilization Type Rolling,Sustained Pressure, Other Intensity/Depth Moderate Body Position L Side Comments very gentle pressure rolling, MWM: gentle intercostal pressure R 8-9 with breath then ribcage mobility gentle caudal pressure with exhale, R UE OH: resisted inhale then release for allow rib recoil and superior glide R 8&9 with inhale. Joint Mobilizations Ribs & CVJ Joint R 1st rib Grade II Body Position Hooklying Reps/Duration 4 reps Comments during serratus press PT-OP-T Assessment and Plan Start: 04/06/24 11:51 Freq: Status: Active Protocol: Document 05/04/24 13:47 SP (Rec: 05/04/24 14:37 SP [id number]) Physical Therapy Assessment Goals Three Impairment Decreased L shoulder strength Short Term Goal (STG) Pt will be able to improve upper body strength by tolerating lifting exercises with her L UE and show improved function per UE Quickdash score. STG Duration 05/04/24 Correction Goal (LTG) Pt will be able to pull a piece of equipment from above shoulder hgt with L arm, or reach up to get something at home w/o pain. LTG Duration 06/01/24 Two Impairment Decreased L shoulder painfree ROM Short Term Goal (STG) Pt will be educated and consistent with proper body mechanics for ADLs and able to perform 80% of full L shoulder AROM (flex & AB 144?, ER 72?, IR 56?) w/o pain. 04/18/24: Issued & educated handout: Proper body mechanics for ADLs and instructions for Body MEchanics Basics. STG Duration 05/04/24 progressed 04/18/24 (need perform pnfree 80% L shdr FROM) Correction Goal (LTG) Pt rosalba be able to perform functional activities reaching or scratching her back, or reaching out to the side painfree. LTG Duration 06/01/24 One Impairment Lacks HEP Short Term Goal (STG) Pt will be educated & consistent with self care pain management and best nighttime positioning. 04/11/24: Discussed & issued RICE technique for pain mgmt. 04/18/24: Pt educated in nighttime positioning in sidelie and discussed sup lying, & pt reporting use of cryotherapy after home activity of tossing firewood. STG Duration 05/04/24 (04/18/24: MET GOAL) Endorsement Clerk Goal (LTG) Pt will be independent with a L neck/shoulder ROM and L shoulder/scapular/elbow strengthening program. 04/11/24: HEP: Corner pec stretch & shoulder flex with back of hands on wall. 04/13/24: I/S pt in scap stab ex: shdr wall flex (~100? with kurt shdr ER hold) and Lev 2 TB issued. Pt denies Latex allergy. 04/18/24: HEP: Sidelie shoulder ER/IR. Pt I/S in corner pec stretch. 05/02/24: added serratus press over noodle. (no HO couldn't print, look next tx) 05/04/24: added humeral ER ( towel under humerus, spine along noodle) LTG Duration 06/01/24 progressed 05/04/24 Assessment Summary Assessment Pt sensitive to intercostal gentle pressure rolling better sustained gentle pressure with breath, good rib recoil response and abdominal MWM with breath today, muscle softening. Pt reported light tingling in R ES (LS<>TS) but ok on L during open book. REviewed AROM tolerant range over noodle to open anterior chain, cues for depression scapular gliding during serratus press, provided caudal 1st rib glide helped pain reduction. Pt reports more ribcage and scapular mobility end tx leaving. Physical Therapy Plan Frequency and Duration Frequency of Treatment 2x/Week Duration of treatment (weeks) 8 Plan of Care Start Date 04/06/24 Plan of Care End Date 06/01/24 Therapeutic Interventions Therapeutic Interventions Home Exercise Program,Joint Mobilizations,Manual Therapy, Neuromuscular Re-education, Self-Care/Home Management,Soft Tissue Mobilization,Taping, Therapeutic Activities, Therapeutic Exercises Modalities Cold Pack/Ice Massage,Electric Stimulation,Hot Packs Next Visit Focus/Plan Next Note Type Treatment Note Next Visit Plan Recheck HEP over noodle, provide HO. L RC (possible tear) rehab. Continue: Intercostal STM R lateral ribcage, and JMT as needed to reduce rib pain with use of UE 's. Add treatment: US to krissy biceps tendon. Progress L shoulder ROM f/b active gravity resisted exercise, holding pt back from being aggressive with exercise. Manual: STM L neck/shoulder/ intrascap ms, JMT: ?ribs (7,8) , T/S. Ex: Scap stab, RC strengthening. Modalities: Estim/MH/Ice.
--- NOTE | 2024-05-09 08:16 | PT.OTN ---
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 Per pt: hx of L/S herniated discs. PT-OP-B Current Condition Start: 04/06/24 11:51 Freq: Status: Active Protocol: Document 04/06/24 12:16 LRN (Rec: 04/06/24 13:09 LRN [id number]) Current Condition History of Current Condition Onset Date 12/2022 Current Complaints L shoulder pain (R shoulder pain not approved for PT) History of Current Condition States in 2023 had Physical Therapy for L RC injury at [facility] in [facility] for 6-8 sessions, had + response and thought she was healed because she had full ROM, and didn't have the strength tested, but was playing pickle ball, able to do outside land management on large property, 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 In 12/2022 went on fishing trip and helped staff carry heavy boxes up a [place] and by the end of the trip her L shoulder was very painful. She had injured her R shoulder 7 months ago ( reports, not approved by L&I for treatment); therefore has been doing everything with her L shoulder; it now hurts again. Has tried to do ex's from her previous therapy. Saw Dr. Valadez and then had MRI ( results unknown). Since new onset of L shoulder pain she is limited to lifting to shoulder height or above because of pain. She is attending [facility] PT because she is now working in [place]. Prior Treatments and Tests No new MRI's or X-rays since new onset of L shoulder pain. MRI done at [facility]; therefore results are not available. Has had chiro visits 10 yrs ago. Pt reports hx of Lumbar herniated disc but no longer has pain. 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 L shoulder pain till September 2023 Now restricted from doing UE activities to waist high. Lives in [place]. Seizure x 1 (10+ yrs ago). Treatment Goals Patient/Caregiver Goals Pt goals: -be able to pull a piece of equipment from above shoulder hgt or reach up to get something at home w/o pain. -functional activities reaching or scratching her back, reaching out to the side painfree. -improve upper body strength. -HEP Personal Factors Other Personal Factors That May Effect Osteoporosis, neck pain w/ Therapy/Recovery severe stenosis (constant R sided ms spasms). 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 PT-OP-C Subjective Start: 04/06/24 11:51 Freq: Status: Active Protocol: Document 05/09/24 07:38 SP (Rec: 05/09/24 08:21 SP [id number]) OP-PT Subjective Patient Comments Patient Comments Pt reports felt good later in day after tx at work. The next day 1/2 [address] through day had more electrical in neck then causes less focus ability in her head. She stated in her past any neck work has usually next day causes increased issues in neck and head. She stated was fine Sat and through weekend. Her and 2 family members put together hot tub and was able to use Sun and Mon found helpful with shld mobility. SHe arrives with report most tension anterior R shld and toward sternum under clavicle, sensitive to pressure and feels restricted with deeper breath. PT-OP-E Functional Tests Start: 04/06/24 11:51 Freq: Status: Active Protocol: Document 04/11/24 09:04 LRN (Rec: 04/11/24 10:17 LRN [id number]) Functional Tests Apley's Scratch Test Action 1- Left Slight posterior of R GHJ Action 1- Right Spine of L scapula Action 2- Left T2 Action 2- Right T3 Action 3- Left T5 Action 3- Right T7 PT-OP-H Neuro Start: 04/06/24 11:51 Freq: Status: Active Protocol: Document 04/06/24 12:16 LRN (Rec: 04/06/24 13:09 LRN [id number]) Sensation Evaluation Gross Sensation Gross Sensation WNL PT-OP-J Posture/Palpation/Skin Start: 04/06/24 11:51 Freq: Status: Active Protocol: Document 04/06/24 12:16 LRN (Rec: 04/06/24 13:09 LRN [id number]) Posture Evaluation Position Standing L-Spine Posture Increased Lordosis Shoulder Posture (L) Forward,(L) Elevated Scapula Posture (L) Rotated Down,(L) Elevated Knee Posture (L) Genu Valgus,(R) Genu Valgus Ankle/Foot Posture (R) Pronated,(L) Supinated Comments Posture Comments Dowagers hump, T/S is C- curved w/apex on the left. PT-OP-K Range of Motion Start: 04/06/24 11:51 Freq: Status: Active Protocol: Document 04/25/24 09:00 LRN (Rec: 04/25/24 09:50 LRN [id number]) Shoulder Goniometric Range of Motion Shoulder Right Active Testing Position Stand arm on wall Flexion 133 Comments Rib pain limited on R side Left Active Testing Position Stand arm on wall Flexion 133 PT-OP-M Strength Start: 04/06/24 11:51 Freq: Status: Active Protocol: Document 04/06/24 12:16 LRN (Rec: 04/06/24 13:09 LRN [id number]) Shoulder Strength Shoulder Manual Muscle Testing Right Comments 5/5 generally Left Flexion 4 Good Abduction (C5) 2+ Poor+ External Rotation 4 Good Internal Rotation 3 Fair PT-OP-Q Treatments Start: 04/06/24 11:51 Freq: Status: Active Protocol: Document 05/09/24 07:38 SP (Rec: 05/09/24 08:21 SP [id number]) Therapeutic Exercises Supine Exercises noodle Supine Exercise Name Reviewed: 1. TS ext 2. AROM ER - review /c HO Side left Resistance AROM Equipment Used folded towel under TS and krissy humerus, breath Reps/Minutes 1. various TS segments with 3 breath 2. humeral ER x10 reps Comments Improved ribcage mobility with breath/TS ext, ER pnfree range Sidelying Exercises Open Book Sidelying Exercise Name arm then scap post/inf glide, TS rotation /c head Side bilateral Equipment Used L hand on head (limited shld range), R long arm axis Reps/Minutes 10x, 2 breath last 2 reps Comments improved scap and ribcage& clavicle mobility Standing Exercises Shoulder flex stretch Standing Exercise Name Arms up wall with hands together and hands apart & shldrs ER'd- verbal revi Side bilateral Resistance 103 deg's flex (past tx) Equipment Used Wall Comments Phys & v cuing for scapular motion & stabilb. on return to start postion Manual Therapy Treatment Consent Patient gave verbal consent for manual Yes treatment Soft Tissue Mobilization Abdominals Body Location R oblique, RAb Mobilization Type Myofascial Release,Sustained Pressure,Other Intensity/Depth Moderate Body Position Hooklying Comments superior abdominals at ribcage , gentle pressure sink under inferior ribcage with exhale, almost no tension on R today, improved decrease tension L today. Ed self application B shld Body Location R>L pec minor, major, coracobracialis, bicep Mobilization Type Rolling,Sustained Pressure, Other Intensity/Depth Moderate Body Position Supine Comments STMs and MWM breath /c pec and punching motion, humeral IR/ER cor. brac, elbow flex/ ext bicep. Intercostals Body Location R>L T3-5, anterior sternum, subclavius, Mobilization Type Myofascial Release,Sustained Pressure,Other Intensity/Depth Superficial Body Position Hooklying Comments Anterior sternum superior and inferior, MFR /c breath superior glide taught releases with breath, inferior glide subclavius and proximal coracobrachialis with breath decreased intercostal discomfort R 3-4-5 and improved rib expansion. Joint Mobilizations Ribs & CVJ Joint R 3-4th rib and proximal/ medial clavicle (L fine) Grade II Body Position Hooklying Reps/Duration 4 reps Comments caudal glide with exhale then resist 1/2 breath inhale then release recoil, improved up rotation PT-OP-T Assessment and Plan Start: 04/06/24 11:51 Freq: Status: Active Protocol: Document 05/09/24 07:38 SP (Rec: 05/09/24 08:21 SP [id number]) Physical Therapy Assessment Goals Three Impairment Decreased L shoulder strength Short Term Goal (STG) Pt will be able to improve upper body strength by tolerating lifting exercises with her L UE and show improved function per UE Quickdash score. 05/09/24: not able to tolerated FF hooklying, still guarded L open book performing short level arm. Focusing gravity assisted. 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 05/09/24: Re trial serratus press motion hooklying causes discomfort R anterior inferior clavicle, haven't progressed in standing. Added hooklying scap retraction with humeral ER (towel under humerus). LTG Duration 06/01/24 slow progression Two Impairment Decreased L shoulder painfree ROM Short Term Goal (STG) Pt will be educated and consistent with proper body mechanics for ADLs and able to perform 80% of full L shoulder AROM (flex & AB 144?, ER 72?, IR 56?) w/o pain. 04/18/24: Issued & educated handout: Proper body mechanics for ADLs and instructions for Body MEchanics Basics. STG Duration 05/04/24 progressed 04/18/24 (need perform pnfree 80% L shdr FROM) Mcc Goal (LTG) Pt rosalba be able to perform functional activities reaching or scratching her back, or reaching out to the side painfree. LTG Duration 06/01/24 One Impairment Lacks HEP Short Term Goal (STG) Pt will be educated & consistent with self care pain management and best nighttime positioning. 04/11/24: Discussed & issued RICE technique for pain mgmt. 04/18/24: Pt educated in nighttime positioning in sidelie and discussed sup lying, & pt reporting use of cryotherapy after home activity of tossing firewood. STG Duration 05/04/24 (04/18/24: MET GOAL) Mcc Goal (LTG) Pt will be independent with a L neck/shoulder ROM and L shoulder/scapular/elbow strengthening program. 04/11/24: HEP: Corner pec stretch & shoulder flex with back of hands on wall. 04/13/24: I/S pt in scap stab ex: shdr wall flex (~100? with kurt shdr ER hold) and Lev 2 TB issued. Pt denies Latex allergy. 04/18/24: HEP: Sidelie shoulder ER/IR. Pt I/S in corner pec stretch. 05/02/24: added serratus press over noodle. (no HO couldn't print, look next tx) 05/04/24: added humeral ER ( towel under humerus, spine along noodle) 05/09/34: DC serratus press at this time, R anterior shld pain. LTG Duration 06/01/24 progressed 05/09/24 Assessment Summary Assessment Pt responded well to MFR and clavicle and rib mobility manual today with use breath, found improved intercostal/ subclavius/coracobrachilis tension and ribrecoil improvement. Slow progresion shld ROM HEP. No manual on neck today due to adverse affect after last tx, see objective. Pt demonstrates improved ribcage and R clavicle expansion with deeper breath. Ed hold off on lifting heavy items in front, will review body mechanics next tx and progress gentle posterior chain strengthening to support posture and scap strengthening. Physical Therapy Plan Frequency and Duration Frequency of Treatment 2x/Week Duration of treatment (weeks) 8 Plan of Care Start Date 04/06/24 Plan of Care End Date 06/01/24 Therapeutic Interventions Therapeutic Interventions Home Exercise Program,Joint Mobilizations,Manual Therapy, Neuromuscular Re-education, Self-Care/Home Management,Soft Tissue Mobilization,Taping, Therapeutic Activities, Therapeutic Exercises Modalities Cold Pack/Ice Massage,Electric Stimulation,Hot Packs Next Visit Focus/Plan Next Note Type Progress Note Next Visit Plan Next appt 10th visit. Recheck HEP over folded towel. REcheck response to MFR ribcage/ clavicle next tx. Incorporated body mechanics for ADLs, possible posterior rhomboid/ postural strengthening: TB #1. Continue PT POC: L RC ( possible tear) rehab. Continue : Intercostal STM R lateral ribcage, and JMT as needed to reduce rib pain with use of UE 's. Add treatment: US to krissy biceps tendon. Progress L shoulder ROM f/b active gravity resisted exercise, holding pt back from being aggressive with exercise. Manual: STM L neck/shoulder/ intrascap ms, JMT: ?ribs (7,8) , T/S. Ex: Scap stab, RC strengthening. Modalities: Estim/MH/Ice.
--- NOTE | 2024-05-09 09:51 | PT.OTN ---
Current Diagnoses Primary osteoarthritis, left shoulder (05/09/24) Incomplete rotator cuff tear or rupture of left shoulder, not specified as traumatic (05/09/24) Physical Therapy Treatment Note PT-OP-A Visit Information Start: 04/06/24 11:51 Freq: Status: Active Protocol: Document 05/09/24 07:38 SP (Rec: 05/09/24 08:21 SP [id number]) Out-Patient Physical Therapy Visit Information Visit Information Visit Type Treatment Note Visit Start Time 07:34 Visit Stop Time 08:16 Visit Number 9 Number of CHILD CARE ASSOCIATE Visits 3 Evaluation Information Evaluation Date 04/06/24 Precautions Precautions Per intake form: Osteoporosis , neck pain w/severe stenosis (constant R sided ms spasms), R forearm ORIF, umbilical hernia. Per pt: hx of L/S herniated discs. *Cleaning spray nearby in room can be irritant to breathing. PT-OP-B Current Condition Start: 04/06/24 11:51 Freq: Status: Active Protocol: Document 04/06/24 12:16 LRN (Rec: 04/06/24 13:09 LRN [id number]) Current Condition History of Current Condition Onset Date 12/2022 Current Complaints L shoulder pain (R shoulder pain not approved for PT) History of Current Condition States in 2023 had Physical Therapy for L RC injury at [facility] in [facility] for 6-8 sessions, had + response and thought she was healed because she had full ROM, and didn't have the strength tested, but was playing pickle ball, able to do outside land management on large property, 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 In 12/2022 went on fishing trip and helped staff carry heavy boxes up a [place] and by the end of the trip her L shoulder was very painful. She had injured her R shoulder 7 months ago ( reports, not approved by [employer]&[facility] for treatment); therefore has been doing everything with her L shoulder; it now hurts again. Has tried to do ex's from her previous therapy. Saw Dr. Valadez and then had MRI ( results unknown). Since new onset of L shoulder pain she is limited to lifting to shoulder height or above because of pain. She is attending [facility] PT because she is now working in [employer]. Prior Treatments and Tests No new MRI's or X-rays since new onset of L shoulder pain. MRI done at [facility]; therefore results are not available. Has had chiro visits 10 yrs ago. Pt reports hx of Lumbar herniated disc but no longer has pain. 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 L shoulder pain till September 2023 Now restricted from doing UE activities to waist high. Lives in [place]. Seizure x 1 (10+ yrs ago). Treatment Goals Patient/Caregiver Goals Pt goals: -be able to pull a piece of equipment from above shoulder hgt or reach up to get something at home w/o pain. -functional activities reaching or scratching her back, reaching out to the side painfree. -improve upper body strength. -HEP Personal Factors Other Personal Factors That May Effect Osteoporosis, neck pain w/ Therapy/Recovery severe stenosis (constant R sided ms spasms). 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 PT-OP-C Subjective Start: 04/06/24 11:51 Freq: Status: Active Protocol: Document 05/09/24 07:38 SP (Rec: 05/09/24 08:21 SP [id number]) OP-PT Subjective Patient Comments Patient Comments Pt reports felt good later in day after tx at work. The next day 1/2 [address] through day had more electrical in neck then causes less focus ability in her head. She stated in her past any neck work has usually next day causes increased issues in neck and head. She stated was fine Sat and through weekend. Her and 2 family members put together hot tub and was able to use Sun and Mon found helpful with shld mobility. SHe arrives with report most tension anterior R shld and toward sternum under clavicle, sensitive to pressure and feels restricted with deeper breath. PT-OP-E Functional Tests Start: 04/06/24 11:51 Freq: Status: Active Protocol: Document 04/11/24 09:04 LRN (Rec: 04/11/24 10:17 LRN [id number]) Functional Tests Apley's Scratch Test Action 1- Left Slight posterior of R GHJ Action 1- Right Spine of L scapula Action 2- Left T2 Action 2- Right T3 Action 3- Left T5 Action 3- Right T7 PT-OP-H Neuro Start: 04/06/24 11:51 Freq: Status: Active Protocol: Document 04/06/24 12:16 LRN (Rec: 04/06/24 13:09 LRN [id number]) Sensation Evaluation Gross Sensation Gross Sensation WNL PT-OP-J Posture/Palpation/Skin Start: 04/06/24 11:51 Freq: Status: Active Protocol: Document 04/06/24 12:16 LRN (Rec: 04/06/24 13:09 LRN [id number]) Posture Evaluation Position Standing L-Spine Posture Increased Lordosis Shoulder Posture (L) Forward,(L) Elevated Scapula Posture (L) Rotated Down,(L) Elevated Knee Posture (L) Genu Valgus,(R) Genu Valgus Ankle/Foot Posture (R) Pronated,(L) Supinated Comments Posture Comments Dowagers hump, T/S is C- curved w/apex on the left. PT-OP-K Range of Motion Start: 04/06/24 11:51 Freq: Status: Active Protocol: Document 04/25/24 09:00 LRN (Rec: 04/25/24 09:50 LRN [id number]) Shoulder Goniometric Range of Motion Shoulder Right Active Testing Position Stand arm on wall Flexion 133 Comments Rib pain limited on R side Left Active Testing Position Stand arm on wall Flexion 133 PT-OP-M Strength Start: 04/06/24 11:51 Freq: Status: Active Protocol: Document 04/06/24 12:16 LRN (Rec: 04/06/24 13:09 LRN [id number]) Shoulder Strength Shoulder Manual Muscle Testing Right Comments 5/5 generally Left Flexion 4 Good Abduction (C5) 2+ Poor+ External Rotation 4 Good Internal Rotation 3 Fair PT-OP-Q Treatments Start: 04/06/24 11:51 Freq: Status: Active Protocol: Document 05/09/24 07:38 SP (Rec: 05/09/24 08:21 SP [id number]) Therapeutic Exercises Supine Exercises noodle Supine Exercise Name Reviewed: 1. TS ext 2. AROM ER - review /c HO Side left Resistance AROM Equipment Used folded towel under TS and krissy humerus, breath Reps/Minutes 1. various TS segments with 3 breath 2. humeral ER x10 reps Comments Improved ribcage mobility with breath/TS ext, ER pnfree range Sidelying Exercises Open Book Sidelying Exercise Name arm then scap post/inf glide, TS rotation /c head Side bilateral Equipment Used L hand on head (limited shld range), R long arm axis Reps/Minutes 10x, 2 breath last 2 reps Comments improved scap and ribcage& clavicle mobility Standing Exercises Shoulder flex stretch Standing Exercise Name Arms up wall with hands together and hands apart & shldrs ER'd- verbal revi Side bilateral Resistance 103 deg's flex (past tx) Equipment Used Wall Comments Phys & v cuing for scapular motion & stabilb. on return to start postion Manual Therapy Treatment Consent Patient gave verbal consent for manual Yes treatment Soft Tissue Mobilization Abdominals Body Location R oblique, RAb Mobilization Type Myofascial Release,Sustained Pressure,Other Intensity/Depth Moderate Body Position Hooklying Comments superior abdominals at ribcage , gentle pressure sink under inferior ribcage with exhale, almost no tension on R today, improved decrease tension L today. Ed self application B shld Body Location R>L pec minor, major, coracobracialis, bicep Mobilization Type Rolling,Sustained Pressure, Other Intensity/Depth Moderate Body Position Supine Comments STMs and MWM breath /c pec and punching motion, humeral IR/ER cor. brac, elbow flex/ ext bicep. Intercostals Body Location R>L T3-5, anterior sternum, subclavius, Mobilization Type Myofascial Release,Sustained Pressure,Other Intensity/Depth Superficial Body Position Hooklying Comments Anterior sternum superior and inferior, MFR /c breath superior glide taught releases with breath, inferior glide subclavius and proximal coracobrachialis with breath decreased intercostal discomfort R 3-4-5 and improved rib expansion. Joint Mobilizations Ribs & CVJ Joint R 3-4th rib and proximal/ medial clavicle (L fine) Grade II Body Position Hooklying Reps/Duration 4 reps Comments caudal glide with exhale then resist 1/2 breath inhale then release recoil, improved up rotation PT-OP-T Assessment and Plan Start: 04/06/24 11:51 Freq: Status: Active Protocol: Document 05/09/24 07:38 SP (Rec: 05/09/24 08:21 SP [id number]) Physical Therapy Assessment Goals Three Impairment Decreased L shoulder strength Short Term Goal (STG) Pt will be able to improve upper body strength by tolerating lifting exercises with her L UE and show improved function per UE Quickdash score. 05/09/24: not able to tolerated FF hooklying, still guarded L open book performing short level arm. Focusing gravity assisted. STG Duration 05/04/24 slow progression Grooving Lathe Tender Goal (LTG) Pt will be able to pull a piece of equipment from above shoulder hgt with L arm, or reach up to get something at home w/o pain. 05/09/24: Re trial serratus press motion hooklying causes discomfort R anterior inferior clavicle, haven't progressed in standing. Added hooklying scap retraction with humeral ER (towel under humerus). LTG Duration 06/01/24 slow progression Two Impairment Decreased L shoulder painfree ROM Short Term Goal (STG) Pt will be educated and consistent with proper body mechanics for ADLs and able to perform 80% of full L shoulder AROM (flex & AB 144?, ER 72?, IR 56?) w/o pain. 04/18/24: Issued & educated handout: Proper body mechanics for ADLs and instructions for Body MEchanics Basics. STG Duration 05/04/24 progressed 04/18/24 (need perform pnfree 80% L shdr FROM) Grooving Lathe Tender Goal (LTG) Pt rosalba be able to perform functional activities reaching or scratching her back, or reaching out to the side painfree. LTG Duration 06/01/24 One Impairment Lacks HEP Short Term Goal (STG) Pt will be educated & consistent with self care pain management and best nighttime positioning. 04/11/24: Discussed & issued RICE technique for pain mgmt. 04/18/24: Pt educated in nighttime positioning in sidelie and discussed sup lying, & pt reporting use of cryotherapy after home activity of tossing firewood. STG Duration 05/04/24 (04/18/24: MET GOAL) Grooving Lathe Tender Goal (LTG) Pt will be independent with a L neck/shoulder ROM and L shoulder/scapular/elbow strengthening program. 04/11/24: HEP: Corner pec stretch & shoulder flex with back of hands on wall. 04/13/24: I/S pt in scap stab ex: shdr wall flex (~100? with kurt shdr ER hold) and Lev 2 TB issued. Pt denies Latex allergy. 04/18/24: HEP: Sidelie shoulder ER/IR. Pt I/S in corner pec stretch. 05/02/24: added serratus press over noodle. (no HO couldn't print, look next tx) 05/04/24: added humeral ER ( towel under humerus, spine along noodle) 05/09/34: DC serratus press at this time, R anterior shld pain. LTG Duration 06/01/24 progressed 05/09/24 Assessment Summary Assessment Pt responded well to MFR and clavicle and rib mobility manual today with use breath, found improved intercostal/ subclavius/coracobrachilis tension and ribrecoil improvement. Slow progresion shld ROM HEP. No manual on neck today due to adverse affect after last tx, see objective. Pt demonstrates improved ribcage and R clavicle expansion with deeper breath. Ed hold off on lifting heavy items in front, will review body mechanics next tx and progress gentle posterior chain strengthening to support posture and scap strengthening. During tx pt had challenge breath with cleaning spray 5 tables away, caution in future tx. Physical Therapy Plan Frequency and Duration Frequency of Treatment 2x/Week Duration of treatment (weeks) 8 Plan of Care Start Date 04/06/24 Plan of Care End Date 06/01/24 Therapeutic Interventions Therapeutic Interventions Home Exercise Program,Joint Mobilizations,Manual Therapy, Neuromuscular Re-education, Self-Care/Home Management,Soft Tissue Mobilization,Taping, Therapeutic Activities, Therapeutic Exercises Modalities Cold Pack/Ice Massage,Electric Stimulation,Hot Packs Next Visit Focus/Plan Next Note Type Progress Note Next Visit Plan *Cleaning spray in room nearby irritant to breathing. Next appt 10th visit. Recheck HEP over folded towel. REcheck response to MFR ribcage/ clavicle next tx. Incorporated body mechanics for ADLs, possible posterior rhomboid/ postural strengthening: TB #1. Continue PT POC: L RC ( possible tear) rehab. Continue : Intercostal STM R lateral ribcage, and JMT as needed to reduce rib pain with use of UE 's. Add treatment: US to krissy biceps tendon. Progress L shoulder ROM f/b active gravity resisted exercise, holding pt back from being aggressive with exercise. Manual: STM L neck/shoulder/ intrascap ms, JMT: ?ribs (7,8) , T/S. Ex: Scap stab, RC strengthening. Modalities: Estim/MH/Ice.
--- NOTE | 2024-05-11 08:25 | PT.OTN ---
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 Visit Start Time 07:45 Visit Stop Time 08:25 Visit Number 10 Number of SHIPBUILDING DRAFTSPERSON Visits 4 Evaluation Information Evaluation Date 04/06/24 Precautions Precautions Per intake form: Osteoporosis , neck pain w/severe stenosis (constant R sided ms spasms), R forearm ORIF, umbilical hernia. Per pt: hx of L/S herniated discs. *Cleaning spray nearby in room can be irritant to breathing. PT-OP-B Current Condition Start: 04/06/24 11:51 Freq: Status: Active Protocol: Document 04/06/24 12:16 LRN (Rec: 04/06/24 13:09 LRN [id number]) Current Condition History of Current Condition Onset Date 12/2022 Current Complaints L shoulder pain (R shoulder pain not approved for PT) History of Current Condition States in 2023 had Physical Therapy for L RC injury at [facility] in [facility] for 6-8 sessions, had + response and thought she was healed because she had full ROM, and didn't have the strength tested, but was playing pickle ball, able to do outside land management on large property, 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 In 12/2022 went on fishing trip and helped staff carry heavy boxes up a [place] and by the end of the trip her L shoulder was very painful. She had injured her R shoulder 7 months ago ( reports, not approved by [facility]&I for treatment); therefore has been doing everything with her L shoulder; it now hurts again. Has tried to do ex's from her previous therapy. Saw Dr. Valadez and then had MRI ( results unknown). Since new onset of L shoulder pain she is limited to lifting to shoulder height or above because of pain. She is attending [facility] PT because she is now working in [employer]. Prior Treatments and Tests No new MRI's or X-rays since new onset of L shoulder pain. MRI done at [facility]; therefore results are not available. Has had chiro visits 10 yrs ago. Pt reports hx of Lumbar herniated disc but no longer has pain. 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 L shoulder pain till September 2023 Now restricted from doing UE activities to waist high. Lives in [place]. Seizure x 1 (10+ yrs ago). Treatment Goals Patient/Caregiver Goals Pt goals: -be able to pull a piece of equipment from above shoulder hgt or reach up to get something at home w/o pain. -functional activities reaching or scratching her back, reaching out to the side painfree. -improve upper body strength. -HEP Personal Factors Other Personal Factors That May Effect Osteoporosis, neck pain w/ Therapy/Recovery severe stenosis (constant R sided ms spasms). 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 PT-OP-C Subjective Start: 04/06/24 11:51 Freq: Status: Active Protocol: Document 05/11/24 07:45 SP (Rec: 05/11/24 08:45 SP [id number]) OP-PT Subjective Patient Comments Patient Comments Pt reports the MF work last tx helped alot over anterior R shld, ribcage and sternum. She was able to see county manager at work that worked onneck and LB and helped. She continues to have painin L shld reaching out to side. She stated open book with L hand on head better but can't do long axis. Can reachover head now. PT-OP-E Functional Tests Start: 04/06/24 11:51 Freq: Status: Active Protocol: Document 04/11/24 09:04 LRN (Rec: 04/11/24 10:17 LRN [id number]) Functional Tests Apley's Scratch Test Action 1- Left Slight posterior of R GHJ Action 1- Right Spine of L scapula Action 2- Left T2 Action 2- Right T3 Action 3- Left T5 Action 3- Right T7 PT-OP-H Neuro Start: 04/06/24 11:51 Freq: Status: Active Protocol: Document 04/06/24 12:16 LRN (Rec: 04/06/24 13:09 LRN [id number]) Sensation Evaluation Gross Sensation Gross Sensation WNL PT-OP-J Posture/Palpation/Skin Start: 04/06/24 11:51 Freq: Status: Active Protocol: Document 04/06/24 12:16 LRN (Rec: 04/06/24 13:09 LRN [id number]) Posture Evaluation Position Standing L-Spine Posture Increased Lordosis Shoulder Posture (L) Forward,(L) Elevated Scapula Posture (L) Rotated Down,(L) Elevated Knee Posture (L) Genu Valgus,(R) Genu Valgus Ankle/Foot Posture (R) Pronated,(L) Supinated Comments Posture Comments Dowagers hump, T/S is C- curved w/apex on the left. PT-OP-K Range of Motion Start: 04/06/24 11:51 Freq: Status: Active Protocol: Document 04/25/24 09:00 LRN (Rec: 04/25/24 09:50 LRN [id number]) Shoulder Goniometric Range of Motion Shoulder Right Active Testing Position Stand arm on wall Flexion 133 Comments Rib pain limited on R side Left Active Testing Position Stand arm on wall Flexion 133 PT-OP-M Strength Start: 04/06/24 11:51 Freq: Status: Active Protocol: Document 04/06/24 12:16 LRN (Rec: 04/06/24 13:09 LRN [id number]) Shoulder Strength Shoulder Manual Muscle Testing Right Comments 5/5 generally Left Flexion 4 Good Abduction (C5) 2+ Poor+ External Rotation 4 Good Internal Rotation 3 Fair PT-OP-Q Treatments Start: 04/06/24 11:51 Freq: Status: Active Protocol: Document 05/11/24 07:45 SP (Rec: 05/11/24 08:45 SP [id number]) Therapeutic Exercises Sidelying Exercises Shld ABD Sidelying Exercise Name L up to 90 deg (only performed in PT post manual for range assessment estevan) Side left Resistance AROM Reps/Minutes 5 reps Comments cued painfree motion Open Book Sidelying Exercise Name arm then scap post/inf glide, TS rotation /c head Side bilateral Equipment Used L hand on head (limited shld range), R long arm axis Reps/Minutes 10x, 2 breath last 2 reps Comments improved scap and ribcage& clavicle mobility Shdr ER/opp side IR Sidelying Exercise Name L side focus (L ER to 45 deg, R ER to 70 deg's) Side bilateral Resistance AROM Equipment Used better no towel under arm Reps/Minutes 15x each (L ER to neutral up to 45 deg pnfree /) Comments Cued painfree mvmt, head back neutral Standing Exercises ER Standing Exercise Name trialed in PT and added to HEP /c HO Side left Resistance TB #1 anchored in door vs krissy together Reps/Minutes 10 reps Comments cued scap set, tall posture not over stretch anterior subclavicle IR Standing Exercise Name trialed in PT and added to HEP /c HO Side left Resistance TB #1 anchored in door Reps/Minutes 10 reps Comments cued scap set, tall posture not over stretch anterior subclavicle Extension Standing Exercise Name trialed in PT and added to HEP /c HO Side bilateral Resistance TB #1 anchored in door Reps/Minutes 10 reps Comments cued scap set, tall posture not over stretch anterior subclavicle Rows Standing Exercise Name trialed in PT and added to HEP /c HO Side bilateral Resistance TB #1 anchored in door Reps/Minutes 10 reps Comments cued scap set, tall posture not over stretch anterior subclavicle Manual Therapy Treatment Consent Patient gave verbal consent for manual Yes treatment Soft Tissue Mobilization B shld Body Location R>L pec minor, major, coracobracialis Mobilization Type Rolling,Sustained Pressure, Other Intensity/Depth Superficial Body Position Supine Comments gentle STMs and light pressure during PROM humeral IR/ER /c breath . Intercostals Body Location R T3-4, anterior sternum, subclavius, Mobilization Type Myofascial Release,Sustained Pressure,Other Intensity/Depth Superficial Body Position Hooklying Comments Anterior sternum inf>sup resisted, MFR /c breath superior glide taught releases with breath, inferior glide subclavius and proximal clavicle with breath decreased intercostal discomfort R 3-4 and SC jt improved rib expansion. Joint Mobilizations L shld Joint GH Direction posterior, inferior glide Grade II Body Position Hooklying Comments good response pnfree. Ribs & CVJ Joint R 3-4th rib and SC jt (L fine) Grade II Body Position Hooklying Reps/Duration 4 reps Comments caudal glide with exhale then resist 1/2 breath inhale then release recoil, improved up rotation PT-OP-T Assessment and Plan Start: 04/06/24 11:51 Freq: Status: Active Protocol: Document 05/11/24 07:45 SP (Rec: 05/11/24 08:45 SP [id number]) Physical Therapy Assessment Goals Three Impairment Decreased L shoulder strength Short Term Goal (STG) Pt will be able to improve upper body strength by tolerating lifting exercises with her L UE and show improved function per UE Quickdash score. 05/09/24: not able to tolerated FF hooklying, still guarded L open book performing short level arm. Focusing gravity assisted. STG Duration 05/04/24 slow progression Shelter Goal (LTG) Pt will be able to pull a piece of equipment from above shoulder hgt with L arm, or reach up to get something at home w/o pain. 05/09/24: Re trial serratus press motion hooklying causes discomfort R anterior inferior clavicle, haven't progressed in standing. Added hooklying scap retraction with humeral ER (towel under humerus). LTG Duration 06/01/24 slow progression Two Impairment Decreased L shoulder painfree ROM Short Term Goal (STG) Pt will be educated and consistent with proper body mechanics for ADLs and able to perform 80% of full L shoulder AROM (flex & AB 144?, ER 72?, IR 56?) w/o pain. 04/18/24: Issued & educated handout: Proper body mechanics for ADLs and instructions for Body MEchanics Basics. STG Duration 05/04/24 progressed 04/18/24 (need perform pnfree 80% L shdr FROM) Cardiopulmonary Specialist Goal (LTG) Pt rosalba be able to perform functional activities reaching or scratching her back, or reaching out to the side painfree. LTG Duration 06/01/24 One Impairment Lacks HEP Short Term Goal (STG) Pt will be educated & consistent with self care pain management and best nighttime positioning. 04/11/24: Discussed & issued RICE technique for pain mgmt. 04/18/24: Pt educated in nighttime positioning in sidelie and discussed sup lying, & pt reporting use of cryotherapy after home activity of tossing firewood. STG Duration 05/04/24 (04/18/24: MET GOAL) Cardiopulmonary Specialist Goal (LTG) Pt will be independent with a L neck/shoulder ROM and L shoulder/scapular/elbow strengthening program. 04/11/24: HEP: Corner pec stretch & shoulder flex with back of hands on wall. 04/13/24: I/S pt in scap stab ex: shdr wall flex (~100? with kurt shdr ER hold) and Lev 2 TB issued. Pt denies Latex allergy. 04/18/24: HEP: Sidel[place] shoulder ER/IR. Pt I/S in corner pec stretch. 05/02/24: added serratus press over noodle. (no HO couldn't print, look next tx) 05/04/24: added humeral ER ( towel under humerus, spine along noodle) 05/09/34: DC serratus press at this time, R anterior shld pain. 05/11/24: added resisted rows, shld ext, humeral IR and ER Tb #1. LTG Duration 06/01/24 progressed 05/11/24 Assessment Summary Assessment Pt continued sensitivity MF over upper sternum and into subclavicle improved MWM manual with breath, ed self application. Still limited L end feel ER >45 deg SL, progressed light scapular and L GH strengthening resisted L only IR, ER, rows and extension for home carryover scapular. Cues for posture and scapular setting but not over retract adding excessive tension anterior sternum/krissy shlds. Physical Therapy Plan Frequency and Duration Frequency of Treatment 2x/Week Duration of treatment (weeks) 8 Plan of Care Start Date 04/06/24 Plan of Care End Date 06/01/24 Therapeutic Interventions Therapeutic Interventions Home Exercise Program,Joint Mobilizations,Manual Therapy, Neuromuscular Re-education, Self-Care/Home Management,Soft Tissue Mobilization,Taping, Therapeutic Activities, Therapeutic Exercises Modalities Cold Pack/Ice Massage,Electric Stimulation,Hot Packs Next Visit Focus/Plan Next Note Type Progress Note Next Visit Plan *Cleaning spray in room nearby irritant to breathing, tends to tap when sensitive to pressure. Next appt 10th visit. Recheck HEP TB. REcheck response to MFR ribcage/clavicle next tx. Incorporated body mechanics for ADLs, possible posterior rhomboid/postural strengthening: TB #1. Continue PT POC: L RC ( possible tear) rehab. Continue : Intercostal STM R lateral ribcage, and JMT as needed to reduce rib pain with use of UE 's. Add treatment: US to krissy biceps tendon. Progress L shoulder ROM f/b active gravity resisted exercise, holding pt back from being aggressive with exercise. Manual: STM L neck/shoulder/ intrascap ms, JMT: ?ribs (7,8) , T/S. Ex: Scap stab, RC strengthening. Modalities: Estim/MH/Ice.
--- NOTE | 2024-05-25 12:27 | PT.OTN ---
Current Diagnoses Primary osteoarthritis, left shoulder (05/25/24) Incomplete rotator cuff tear or rupture of left shoulder, not specified as traumatic (05/25/24) Physical Therapy Treatment Note PT-OP-A Visit Information Start: 04/06/24 11:51 Freq: Status: Active Protocol: Document 05/25/24 11:35 SP (Rec: 05/25/24 12:35 SP [id number]) Out-Patient Physical Therapy Visit Information Visit Information Visit Type Treatment Note Visit Start Time 11:35 Visit Stop Time 12:27 Visit Number 11 (01/16 visit with eval) Number of CARPENTER INSPECTOR Visits 5 Evaluation Information Evaluation Date 04/06/24 Precautions Precautions Per intake form: Osteoporosis , neck pain w/severe stenosis (constant R sided ms spasms), R forearm ORIF, umbilical hernia. Per pt: hx of L/S herniated discs. *Cleaning spray nearby in room can be irritant to breathing. PT-OP-B Current Condition Start: 04/06/24 11:51 Freq: Status: Active Protocol: Document 04/06/24 12:16 LRN (Rec: 04/06/24 13:09 LRN [id number]) Current Condition History of Current Condition Onset Date 12/2022 Current Complaints L shoulder pain (R shoulder pain not approved for PT) History of Current Condition States in 2023 had Physical Therapy for L RC injury at 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 In 12/2022 went on fishing trip and helped staff carry heavy boxes up a [place] and by the end of the trip her L shoulder was very painful. She had injured her R shoulder 7 months ago ( reports, not approved by L&I for treatment); therefore has been doing everything with her L shoulder; it now hurts again. Has tried to do ex's from her previous therapy. Saw Dr. Valadez and then had MRI ( results unknown). Since new onset of L shoulder pain she is limited to lifting to shoulder height or above because of pain. She is attending [facility] PT because she is now working in [employer]. Prior Treatments and Tests No new MRI's or X-rays since new onset of L shoulder pain. MRI done at [facility]; therefore results are not available. Has had chiro visits 10 yrs ago. Pt reports hx of Lumbar herniated disc but no longer has pain. 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 L shoulder pain till September 2023 Now restricted from doing UE activities to waist high. Lives in [place]. Seizure x 1 (10+ yrs ago). Treatment Goals Patient/Caregiver Goals Pt goals: -be able to pull a piece of equipment from above shoulder hgt or reach up to get something at home w/o pain. -functional activities reaching or scratching her back, reaching out to the side painfree. -improve upper body strength. -HEP Personal Factors Other Personal Factors That May Effect Osteoporosis, neck pain w/ Therapy/Recovery severe stenosis (constant R sided ms spasms). 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 PT-OP-C Subjective Start: 04/06/24 11:51 Freq: Status: Active Protocol: Document 05/25/24 11:35 SP (Rec: 05/25/24 12:35 SP [id number]) OP-PT Subjective Patient Comments Patient Comments Pt reports much better ribcage mobility and no pain, she called Dr Lind's office due to still pain specific continues over L proximal bicep/ anterior shld immediat 7/10 pain reaching out to side and reaching across to R shld and reactional to grab something. She has a follow up appt 06/05. PT-OP-E Functional Tests Start: 04/06/24 11:51 Freq: Status: Active Protocol: Document 04/11/24 09:04 LRN (Rec: 04/11/24 10:17 LRN [id number]) Functional Tests Apley's Scratch Test Action 1- Left Slight posterior of R GHJ Action 1- Right Spine of L scapula Action 2- Left T2 Action 2- Right T3 Action 3- Left T5 Action 3- Right T7 PT-OP-H Neuro Start: 04/06/24 11:51 Freq: Status: Active Protocol: Document 04/06/24 12:16 LRN (Rec: 04/06/24 13:09 LRN [id number]) Sensation Evaluation Gross Sensation Gross Sensation WNL PT-OP-J Posture/Palpation/Skin Start: 04/06/24 11:51 Freq: Status: Active Protocol: Document 04/06/24 12:16 LRN (Rec: 04/06/24 13:09 LRN [id number]) Posture Evaluation Position Standing L-Spine Posture Increased Lordosis Shoulder Posture (L) Forward,(L) Elevated Scapula Posture (L) Rotated Down,(L) Elevated Knee Posture (L) Genu Valgus,(R) Genu Valgus Ankle/Foot Posture (R) Pronated,(L) Supinated Comments Posture Comments Dowagers hump, T/S is C- curved w/apex on the left. PT-OP-K Range of Motion Start: 04/06/24 11:51 Freq: Status: Active Protocol: Document 04/25/24 09:00 LRN (Rec: 04/25/24 09:50 LRN [id number]) Shoulder Goniometric Range of Motion Shoulder Right Active Testing Position Stand arm on wall Flexion 133 Comments Rib pain limited on R side Left Active Testing Position Stand arm on wall Flexion 133 PT-OP-M Strength Start: 04/06/24 11:51 Freq: Status: Active Protocol: Document 04/06/24 12:16 LRN (Rec: 04/06/24 13:09 LRN [id number]) Shoulder Strength Shoulder Manual Muscle Testing Right Comments 5/5 generally Left Flexion 4 Good Abduction (C5) 2+ Poor+ External Rotation 4 Good Internal Rotation 3 Fair PT-OP-Q Treatments Start: 04/06/24 11:51 Freq: Status: Active Protocol: Document 05/25/24 11:35 SP (Rec: 05/25/24 12:35 SP [id number]) Cardio Equipment Upper Body Ergometer (UBE) Duration (Minutes) 4 RPM 80 Seat Position 14 Height 3.5 Other 1 min f/b Therapeutic Exercises Supine Exercises noodle Supine Exercise Name Reviewed: 1. Protraction 2. HABD 3. AROM ER 4. FF (stopped pain) 5. Ws Side left Resistance AROM Equipment Used noodle under/along spine, breath Reps/Minutes x10 reps each, ER elbows at side Comments improved humeral mobility without pain Pec stretch Supine Exercise Name Pec stretch Side bilateral Equipment Used spine along noodle Reps/Minutes 10 reps each Comments Time to get into tolerable position of stretch Standing Exercises ER Standing Exercise Name reviewed HEP Side bilateral Resistance TB #1 anchored in door vs krissy together Reps/Minutes 10 reps Comments cued scap set, tall posture not over stretch anterior subclavicle IR Standing Exercise Name reviewed HEP Side bilateral Resistance TB #1 anchored in door Reps/Minutes 10 reps Comments cued scap set, tall posture not over stretch anterior subclavicle Extension Standing Exercise Name reviewed HEP Side bilateral Resistance TB #1 anchored in door Reps/Minutes 10 reps Comments cued scap set, tall posture not over stretch anterior subclavicle Rows Standing Exercise Name reviewed HEP Side bilateral Resistance TB #1 anchored in door Reps/Minutes 10 reps Comments cued scap set, tall posture not over stretch anterior subclavicle Manual Therapy Treatment Consent Patient gave verbal consent for manual Yes treatment Soft Tissue Mobilization B shld Body Location R>L pec minor, major, coracobracialis Mobilization Type Rolling,Sustained Pressure, Other Intensity/Depth Superficial Body Position Supine Comments gentle STMs and light pressure during PROM humeral IR/ER /c breath . Joint Mobilizations L shld Joint GH Direction posterior, inferior glide Grade II Body Position Hooklying Comments good response pnfree. Manual Techniques PROM L shld Type L Comments FF, ABD, ABD with ER PT-OP-T Assessment and Plan Start: 04/06/24 11:51 Freq: Status: Active Protocol: Document 05/25/24 11:35 SP (Rec: 05/25/24 12:35 SP [id number]) Physical Therapy Assessment Goals Three Impairment Decreased L shoulder strength Short Term Goal (STG) Pt will be able to improve upper body strength by tolerating lifting exercises with her L UE and show improved function per UE Quickdash score. 05/09/24: not able to tolerated FF hooklying, still guarded L open book performing short level arm. Focusing gravity assisted. 05/25/24: tolerated use BUEs lifting log but not using LUE with weight. STG Duration 05/04/24 slow progression 05/25 Shelter Goal (LTG) Pt will be able to pull a piece of equipment from above shoulder hgt with L arm, or reach up to get something at home w/o pain. 05/09/24: Re trial serratus press motion hooklying causes discomfort R anterior inferior clavicle, haven't progressed in standing. Added hooklying scap retraction with humeral ER (towel under humerus). 05/25/24: had not perfromed this. LTG Duration 06/01/24 slow progression 05/25 Two Impairment Decreased L shoulder painfree ROM Short Term Goal (STG) Pt will be educated and consistent with proper body mechanics for ADLs and able to perform 80% of full L shoulder AROM (flex & AB 144?, ER 72?, IR 56?) w/o pain. 04/18/24: Issued & educated handout: Proper body mechanics for ADLs and instructions for Body MEchanics Basics. 05/25/24: incorporating in work /life. STG Duration 05/04/24 GOAL MET Finish Cleaner Goal (LTG) Pt rosalba be able to perform functional activities reaching or scratching her back, or reaching out to the side painfree. 05/25/24: can go slow reachbehind back and across R shld but has pain charlene across body due to pain 09/14 LTG Duration 06/01/24 slow progression 05/25 One Impairment Lacks HEP Short Term Goal (STG) Pt will be educated & consistent with self care pain management and best nighttime positioning. 04/11/24: Discussed & issued RICE technique for pain mgmt. 04/18/24: Pt educated in nighttime positioning in sidelie and discussed sup lying, & pt reporting use of cryotherapy after home activity of tossing firewood. STG Duration 05/04/24 (04/18/24: MET GOAL) Shelter Goal (LTG) Pt will be independent with a L neck/shoulder ROM and L shoulder/scapular/elbow strengthening program. 04/11/24: HEP: Corner pec stretch & shoulder flex with back of hands on wall. 04/13/24: I/S pt in scap stab ex: shdr wall flex (~100? with kurt shdr ER hold) and Lev 2 TB issued. Pt denies Latex allergy. 04/18/24: HEP: Sidelie shoulder ER/IR. Pt I/S in corner pec stretch. 05/02/24: added serratus press over noodle. (no HO couldn't print, look next tx) 05/04/24: added humeral ER ( towel under humerus, spine along noodle) 05/09/34: DC serratus press at this time, R anterior shld pain. 05/11/24: added resisted rows, shld ext, humeral IR and ER Tb #1. 05/25/24: added AROM over noodle: HABD, protraction, ER, ER>abd Ws painfree range. LTG Duration 06/01/24 progressed 05/25/24 Assessment Summary Assessment Pt reports no ribcage pain anymore, just anterior L shld. She tolerates manual well passive STMs and MWM and ed self application decreased tightness. She progressing range before feels pain FF supine AROM: 162deg R, 126- 128deg L. She tolerated progression scapular mobiltiy AROM over noodle today gravity assisted. No adverse affects to progression resisted shld standing for scapular and RTC strengthening. Physical Therapy Plan Frequency and Duration Frequency of Treatment 2x/Week Duration of treatment (weeks) 8 Plan of Care Start Date 04/06/24 Plan of Care End Date 06/01/24 Therapeutic Interventions Therapeutic Interventions Home Exercise Program,Joint Mobilizations,Manual Therapy, Neuromuscular Re-education, Self-Care/Home Management,Soft Tissue Mobilization,Taping, Therapeutic Activities, Therapeutic Exercises Modalities Cold Pack/Ice Massage,Electric Stimulation,Hot Packs Next Visit Focus/Plan Next Note Type Progress Note Next Visit Plan *Cleaning spray in room nearby irritant to breathing, tends to tap when sensitive to pressure. Next appt 12th visit with PT. Recheck HEP TB standing ( posterior rhomboid/postural strengthening: TB #1) .and AROM over noodle tolerance. Continue PT POC: L RC ( possible tear) rehab. Continue : PRN Intercostal STM R lateral ribcage, and JMT as needed to reduce rib pain with use of UE's. Add treatment: US to krissy biceps tendon. Progress L shoulder ROM f/b active gravity resisted exercise, holding pt back from being aggressive with exercise. Manual: STM L neck/shoulder/ intrascap ms, JMT: ?ribs (7,8) , T/S. Ex: Scap stab, RC strengthening. Modalities: Estim/MH/Ice.
--- NOTE | 2024-05-30 18:49 | PT.OTN ---
Current Diagnoses Primary osteoarthritis, left shoulder (05/30/24) Incomplete rotator cuff tear or rupture of left shoulder, not specified as traumatic (05/30/24) Physical Therapy Treatment Note PT-OP-A Visit Information Start: 04/06/24 11:51 Freq: Status: Active Protocol: Document 05/30/24 07:33 LRN (Rec: 05/30/24 08:22 LRN [id number]) Out-Patient Physical Therapy Visit Information Visit Information Visit Type Progress Note Visit Start Time 07:33 Visit Stop Time 08:20 Visit Number Evaluation Information Evaluation Date 04/06/24 Precautions Precautions Per intake form: Osteoporosis , neck pain w/severe stenosis (constant R sided ms spasms), R forearm ORIF, umbilical hernia. Per pt: hx of L/S herniated discs. *Cleaning spray nearby in room can be irritant to breathing. PT-OP-B Current Condition Start: 04/06/24 11:51 Freq: Status: Active Protocol: Document 04/06/24 12:16 LRN (Rec: 04/06/24 13:09 LRN [id number]) Current Condition History of Current Condition Onset Date 12/2022 Current Complaints L shoulder pain (R shoulder pain not approved for PT) History of Current Condition States in 2023 had Physical Therapy for L RC injury at [facility] in [facility] for 6-8 sessions, had + response and thought she was healed because she had full ROM, and didn't have the strength tested, but was playing pickle ball, able to do outside land management on large property, and 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 In 12/2022 went on fishing trip and helped staff carry heavy boxes up a [place] and by the end of the trip her L shoulder was very painful. She had injured her R shoulder 7 months ago ( reports, not approved by L&I for treatment); therefore has been doing everything with her L shoulder; it now hurts again. Has tried to do ex's from her previous therapy. Saw Dr. Valadez and then had MRI ( results unknown). Since new onset of L shoulder pain she is limited to lifting to shoulder height or above because of pain. She is attending [facility] PT because she is now working in [employer]. Prior Treatments and Tests No new MRI's or X-rays since new onset of L shoulder pain. MRI done at [facility]; therefore results are not available. Has had chiro visits 10 yrs ago. Pt reports hx of Lumbar herniated disc but no longer has pain. 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 L shoulder pain till September 2023 Now restricted from doing UE activities to waist high. Lives in [place]. Seizure x 1 (10+ yrs ago). Treatment Goals Patient/Caregiver Goals Pt goals: -be able to pull a piece of equipment from above shoulder hgt or reach up to get something at home w/o pain. -functional activities reaching or scratching her back, reaching out to the side painfree. -improve upper body strength. -HEP Personal Factors Other Personal Factors That May Effect Osteoporosis, neck pain w/ Therapy/Recovery severe stenosis (constant R sided ms spasms). 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 PT-OP-C Subjective Start: 04/06/24 11:51 Freq: Status: Active Protocol: Document 05/30/24 07:33 LRN (Rec: 05/30/24 08:22 LRN [id number]) OP-PT Subjective Patient Comments Patient Comments Dr. Valadez appt 06/05/24. STates everything is doing much better (ribs and neck), except one spot in the L shoulder (lateral deltoid). Not icing as much needs to do more. No pain with moving, can sleep at night, work is fine; primarily pain with lifting out to side and overhead. Pt goal is to return to work. Patient Questionnaires Quick Dash- Upper Extremity Quick Dash UE Score 31.81 Quick Dash UE Impairment 20 to 39% Impaired (Score 20- 39) OP-PT Pain Assessment Pain Assessment Grid Paper Pain Assessment Grid Completed Yes Location L shoulder Pain Location Details Deep in R deltoid. ~ anterolateral edge of medial deltoid Intensity 6 Scale Used Numeric (0 - 10) Description- Other Deep ache Frequency Intermittent PT-OP-E Functional Tests Start: 04/06/24 11:51 Freq: Status: Active Protocol: Document 04/11/24 09:04 LRN (Rec: 04/11/24 10:17 LRN [id number]) Functional Tests Apley's Scratch Test Action 1- Left Slight posterior of R GHJ Action 1- Right Spine of L scapula Action 2- Left T2 Action 2- Right T3 Action 3- Left T5 Action 3- Right T7 PT-OP-H Neuro Start: 04/06/24 11:51 Freq: Status: Active Protocol: Document 04/06/24 12:16 LRN (Rec: 04/06/24 13:09 LRN [id number]) Sensation Evaluation Gross Sensation Gross Sensation WNL PT-OP-J Posture/Palpation/Skin Start: 04/06/24 11:51 Freq: Status: Active Protocol: Document 04/06/24 12:16 LRN (Rec: 04/06/24 13:09 LRN [id number]) Posture Evaluation Position Standing L-Spine Posture Increased Lordosis Shoulder Posture (L) Forward,(L) Elevated Scapula Posture (L) Rotated Down,(L) Elevated Knee Posture (L) Genu Valgus,(R) Genu Valgus Ankle/Foot Posture (R) Pronated,(L) Supinated Comments Posture Comments Dowagers hump, T/S is C- curved w/apex on the left. PT-OP-K Range of Motion Start: 04/06/24 11:51 Freq: Status: Active Protocol: Document 04/25/24 09:00 LRN (Rec: 04/25/24 09:50 LRN [id number]) Shoulder Goniometric Range of Motion Shoulder Right Active Testing Position Stand arm on wall Flexion 133 Comments Rib pain limited on R side Left Active Testing Position Stand arm on wall Flexion 133 PT-OP-M Strength Start: 04/06/24 11:51 Freq: Status: Active Protocol: Document 04/06/24 12:16 LRN (Rec: 04/06/24 13:09 LRN [id number]) Shoulder Strength Shoulder Manual Muscle Testing Right Comments 5/5 generally Left Flexion 4 Good Abduction (C5) 2+ Poor+ External Rotation 4 Good Internal Rotation 3 Fair PT-OP-Q Treatments Start: 04/06/24 11:51 Freq: Status: Active Protocol: Document 05/30/24 07:33 LRN (Rec: 05/30/24 08:22 LRN [id number]) Cardio Equipment Upper Body Ergometer (UBE) Duration (Minutes) 6 RPM 80 Seat Position 14 Height 3.5 Other 2' fwd/bkwd Cued for upright posture to start. Therapeutic Exercises Standing Exercises ER Standing Exercise Name reviewed HEP Side bilateral Resistance TB #1 anchored in door vs krissy together Reps/Minutes 10 reps Comments cued scap set, tall posture not over stretch anterior subclavicle IR Standing Exercise Name reviewed HEP Side bilateral Resistance TB #1 anchored in door Reps/Minutes 10 reps Comments cued scap set, tall posture not over stretch anterior subclavicle Pec stretch Standing Exercise Name Doorway stretch: slowly moving into stretch Side left Reps/Minutes 5 SH x 5, 1.5 breath hold x 5. Shoulder flex stretch Standing Exercise Name Wall slides: slowly moving into flex Side bilateral Reps/Minutes 2 SH x 10 Self-Care/Home Management Treatment Education Other Education Discussed at length with pt results of progress assessment , goals, treatment, and plan of care (POC); pt agreeable to progress assessment, goals, treatment. PT-OP-T Assessment and Plan Start: 04/06/24 11:51 Freq: Status: Active Protocol: Document 05/30/24 07:33 LRN (Rec: 05/30/24 08:22 LRN [id number]) Physical Therapy Assessment Rehab Potential Rehabilitation Potential Fair Evaluation Complexity Number of Personal Factors/Comorbidities 1-2 Number of Body Systems Impaired 4 or More Clinical Presentation at Evaluation Evolving Impairments Impairments Activity Tolerance,Pain,ROM, Soft Tissue Mobility,Strength Goals Three Impairment Decreased L shoulder strength Short Term Goal (STG) Pt will be able to improve upper body strength by tolerating lifting exercises with her L UE and show improved function per UE Quickdash score (inital score 43, 40-59% impaired, score 40- 59). 05/09/24: not able to tolerated FF hooklying, still guarded L open book performing short level arm. Focusing gravity assisted. 05/25/24: tolerated use BUEs lifting log but not using LUE with weight. 05/30/24: Can lift wgt with elbows by her side, can't lift and hold away from the body. Uses wheelbarrel fine. UE Quickdash is 31/81 (20-39% impaired, score 20-39). STG Duration 05/04/24 (05/30/24: progressed, not met goal) Roof Foreman Goal (LTG) Pt will be able to pull a piece of equipment from above shoulder hgt with L arm, or reach up to get something at home w/o pain. 05/09/24: Re trial serratus press motion hooklying causes discomfort R anterior inferior clavicle, haven't progressed in standing. Added hooklying scap retraction with humeral ER (towel under humerus). 05/25/24: had not perfromed this. 05/30/24: Pt avoiding because any wgt currently is painful in overhead positioning waiting to get stronger. LTG Duration 07/27/24 (05/30/24: improved a little, not met goal). Two Impairment Decreased L shoulder painfree ROM Short Term Goal (STG) Pt will be educated and consistent with proper body mechanics for ADLs and able to perform 80% of full L shoulder AROM (flex & AB 144?, ER 72?, IR 56?) w/o pain. 04/18/24: Issued & educated handout: Proper body mechanics for ADLs and instructions for Body MEchanics Basics. 05/25/24: incorporating in work /life. STG Duration 05/04/24 GOAL MET Roof Foreman Goal (LTG) Pt rosalba be able to perform functional activities reaching or scratching her back, or reaching out to the side painfree. 05/25/24: can go slow reachbehind back and across R shld but has pain charlene across body due to pain 7/10. 05/30/24: Reaches across body to top of R shoulder. Can reach up and behind the back to scratch, but with pain rated 5-6/10. ~distal end of biceps tendon. Can reach backward w/o pain. LTG Duration 07/27/24 (05/30/24: partially met goal, can scatch back not reach out) One Impairment Lacks HEP Short Term Goal (STG) Pt will be educated & consistent with self care pain management and best nighttime positioning. 04/11/24: Discussed & issued RICE technique for pain mgmt. 04/18/24: Pt educated in nighttime positioning in sidelie and discussed sup lying, & pt reporting use of cryotherapy after home activity of tossing firewood. 05/30/24: Sleeping w/o pain) STG Duration 05/04/24 (04/18/24: MET GOAL) Roof Foreman Goal (LTG) Pt will be independent with a L neck/shoulder ROM and L shoulder/scapular/elbow strengthening program. 04/11/24: HEP: Corner pec stretch & shoulder flex with back of hands on wall. 04/13/24: I/S pt in scap stab ex: shdr wall flex (~100? with kurt shdr ER hold) and Lev 2 TB issued. Pt denies Latex allergy. 04/18/24: HEP: Sidelie shoulder ER/IR. Pt I/S in corner pec stretch. 05/02/24: added serratus press over noodle. (no HO couldn't print, look next tx) 05/04/24: added humeral ER ( towel under humerus, spine along noodle) 05/09/34: DC serratus press at this time, R anterior shld pain. 05/11/24: added resisted rows, shld ext, humeral IR and ER Tb #1. 05/25/24: added AROM over noodle: HABD, protraction, ER, ER>abd Ws painfree range. LTG Duration 07/27/24 progressed 05/25/24, not met goal. Assessment Summary Assessment Pt is a 59 yo female attending rehab for L RC dysfunction, possible tear, limited mobility & strength due to pain, especially overhead, chronic pain (neck); also with slight R shoulder pain (with doorknob opening motion, pain in same location as L shoulder ). Today, the pt demonstrates less pain overall, but still limited in functional strength for lifing overhead and for lifting and moving objects away from body due to L shoulder pain. UE Quickdash score indicates 31% impairment (initially was 43% impairment ). 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 The pt is being referred back for possible surgical intervention . We would be more than happy to work the pt towards placement on a HEP (1 more visit) to maximize her shoulder strength and function if surgery is planned, or continue working with this pleasant individual further if more therapy is needed (6-8 wks), being sensitive to pt's physical therapy request, per her limit of coverage. We will continue per your recommendation. Physical Therapy Plan Frequency and Duration Frequency of Treatment 2x/Week Duration of treatment (weeks) 8 Plan of Care Start Date 05/30/24 Plan of Care End Date 07/27/24 Therapeutic Interventions Therapeutic Interventions Home Exercise Program,Joint Mobilizations,Manual Therapy, Neuromuscular Re-education, Self-Care/Home Management,Soft Tissue Mobilization, Therapeutic Activities, Therapeutic Exercises Modalities Cold Pack/Ice Massage, Ultrasound Next Visit Focus/Plan Next Note Type Treatment Note Next Visit Plan *Cleaning spray in room nearby irritant to breathing, tends to tap when sensitive to pressure. Dr. Valadez appt 06/05/24, cont per referring physician recommendation. If PT cont'd, recheck HEP TB standing (posterior rhomboid/ postural strengthening: TB #1) and AROM over noodle tolerance. Add treatment: US to krissy biceps tendon. Progress L shoulder ROM f/b active gravity resisted exercise, holding pt back from being aggressive with exercise. POC if PT cont'd: L RC ( possible tear) rehab. PRN Intercostal STM R lateral ribcage, and JMT as needed to reduce rib pain with use of UE 's. Manual: STM L neck/shoulder/ intrascap ms, JMT: ?ribs (7,8) , T/S. Ex: Scap stab, RC strengthening. Modalities: Estim/MH/Ice.
--- NOTE | 2024-06-01 13:23 | PT.OTN ---
Current Diagnoses Primary osteoarthritis, left shoulder (06/01/24) Incomplete rotator cuff tear or rupture of left shoulder, not specified as traumatic (06/01/24) Physical Therapy Treatment Note PT-OP-A Visit Information Start: 04/06/24 11:51 Freq: Status: Active Protocol: Document 06/01/24 09:04 LRN (Rec: 06/01/24 09:55 LRN [id number]) Out-Patient Physical Therapy Visit Information Visit Information Visit Type Treatment Note Visit Start Time 09:05 Visit Stop Time 09:54 Visit Number Evaluation Information Evaluation Date 04/06/24 Precautions Precautions Per intake form: Osteoporosis , neck pain w/severe stenosis (constant R sided ms spasms), R forearm ORIF, umbilical hernia. Per pt: hx of L/S herniated discs. *Cleaning spray nearby in room can be irritant to breathing. PT-OP-B Current Condition Start: 04/06/24 11:51 Freq: Status: Active Protocol: Document 04/06/24 12:16 LRN (Rec: 04/06/24 13:09 LRN [id number]) Current Condition History of Current Condition Onset Date 12/2022 Current Complaints L shoulder pain (R shoulder pain not approved for PT) History of Current Condition States in 2023 had Physical Therapy for L RC injury at [facility] in 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 In 12/2022 went on fishing trip and helped staff carry heavy boxes up a [place] and by the end of the trip her L shoulder was very painful. She had injured her R shoulder 7 months ago ( reports, not approved by L&I for treatment); therefore has been doing everything with her L shoulder; it now hurts again. Has tried to do ex's from her previous therapy. Saw Dr. Valadez and then had MRI ( results unknown). Since new onset of L shoulder pain she is limited to lifting to shoulder height or above because of pain. She is attending [facility] PT because she is now working in [employer]. Prior Treatments and Tests No new MRI's or X-rays since new onset of L shoulder pain. MRI done at [facility]; therefore results are not available. Has had chiro visits 10 yrs ago. Pt reports hx of Lumbar herniated disc but no longer has pain. 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 L shoulder pain till September 2023 Now restricted from doing UE activities to waist high. Lives in [place]. Seizure x 1 (10+ yrs ago). Treatment Goals Patient/Caregiver Goals Pt goals: -be able to pull a piece of equipment from above shoulder hgt or reach up to get something at home w/o pain. -functional activities reaching or scratching her back, reaching out to the side painfree. -improve upper body strength. -HEP Personal Factors Other Personal Factors That May Effect Osteoporosis, neck pain w/ Therapy/Recovery severe stenosis (constant R sided ms spasms). 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 PT-OP-C Subjective Start: 04/06/24 11:51 Freq: Status: Active Protocol: Document 06/01/24 09:04 LRN (Rec: 06/01/24 09:55 LRN [id number]) OP-PT Subjective Patient Comments Patient Comments Wants to be cleared to climb a ladder and carry a little weight. Has gone up a ladder at home. PT-OP-E Functional Tests Start: 04/06/24 11:51 Freq: Status: Active Protocol: Document 04/11/24 09:04 LRN (Rec: 04/11/24 10:17 LRN [id number]) Functional Tests Apley's Scratch Test Action 1- Left Slight posterior of R GHJ Action 1- Right Spine of L scapula Action 2- Left T2 Action 2- Right T3 Action 3- Left T5 Action 3- Right T7 PT-OP-H Neuro Start: 04/06/24 11:51 Freq: Status: Active Protocol: Document 04/06/24 12:16 LRN (Rec: 04/06/24 13:09 LRN [id number]) Sensation Evaluation Gross Sensation Gross Sensation WNL PT-OP-J Posture/Palpation/Skin Start: 04/06/24 11:51 Freq: Status: Active Protocol: Document 04/06/24 12:16 LRN (Rec: 04/06/24 13:09 LRN [id number]) Posture Evaluation Position Standing L-Spine Posture Increased Lordosis Shoulder Posture (L) Forward,(L) Elevated Scapula Posture (L) Rotated Down,(L) Elevated Knee Posture (L) Genu Valgus,(R) Genu Valgus Ankle/Foot Posture (R) Pronated,(L) Supinated Comments Posture Comments Dowagers hump, T/S is C- curved w/apex on the left. PT-OP-K Range of Motion Start: 04/06/24 11:51 Freq: Status: Active Protocol: Document 04/25/24 09:00 LRN (Rec: 04/25/24 09:50 LRN [id number]) Shoulder Goniometric Range of Motion Shoulder Right Active Testing Position Stand arm on wall Flexion 133 Comments Rib pain limited on R side Left Active Testing Position Stand arm on wall Flexion 133 PT-OP-M Strength Start: 04/06/24 11:51 Freq: Status: Active Protocol: Document 06/01/24 09:04 LRN (Rec: 06/01/24 12:58 LRN [id number]) Shoulder Strength Shoulder Manual Muscle Testing Left Flexion 5 Normal Abduction (C5) 3 Fair External Rotation 5 Normal Internal Rotation 5 Normal PT-OP-Q Treatments Start: 04/06/24 11:51 Freq: Status: Active Protocol: Document 06/01/24 09:04 LRN (Rec: 06/01/24 09:55 LRN [id number]) Cardio Equipment Upper Body Ergometer (UBE) Duration (Minutes) 7 RPM 80 Seat Position 14 Height 3.5 Other 2' fwd/bkwd Cued for upright posture to start. Therapeutic Exercises Standing Exercises ER Standing Exercise Name L>R Side bilateral Resistance TB #2 anchored at wall Reps/Minutes 10 x 3 reps IR Standing Exercise Name L>R Side bilateral Resistance TB #1 anchored in door Reps/Minutes 10 x 3 reps Comments cued scap set, tall posture not over stretch anterior subclavicle Extension Standing Exercise Name Scap depr/retraction/TA tight Resistance TB #4 Reps/Minutes 10x 3 Comments cued scap set, tall posture not over stretch anterior subclavicle Rows Standing Exercise Name reviewed HEP Side bilateral Resistance TB #2 anchored in door Reps/Minutes 10 x 3 reps Comments cued scap set, tall posture not over stretch anterior subclavicle Therapeutic Activity Therapeutic Activity Modified work simulations Name 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 Cued pt to not lift L elbow away from body with lifting and when hanging onto ladder. No pain with leaning back on ladder like horzontal bar ( isometric row position). Self-Care/Home Management Treatment Education Other Education Discussed self care of not overloading L shoulder with reaching/lifting overhead, and with ladder climbing; reviewed best positioning for lifting is with elbows in by sides. 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 PT-OP-T Assessment and Plan Start: 04/06/24 11:51 Freq: Status: Active Protocol: Document 06/01/24 09:04 LRN (Rec: 06/01/24 09:55 LRN [id number]) Physical Therapy Assessment Goals Three Impairment Decreased L shoulder strength Short Term Goal (STG) Pt will be able to improve upper body strength by tolerating lifting exercises with her L UE and show improved function per UE Quickdash score (inital score 43, 40-59% impaired, score 40- 59). 05/09/24: not able to tolerated FF hooklying, still guarded L open book performing short level arm. Focusing gravity assisted. 05/25/24: tolerated use BUEs lifting log but not using LUE with weight. 05/30/24: Can lift wgt with elbows by her side, can't lift and hold away from the body. Uses wheelbarrel fine. UE Quickdash is 31/81 (20-39% impaired, score 20-39). 06/01/24: Improved L shoulder strength except with AB (flex , ER, IR is 5/5; AB is 3/5). STG Duration 05/04/24 (06/01/24: improved funct'l score, not met goal) [facility] Goal (LTG) Pt will be able to pull a piece of equipment from above shoulder hgt with L arm, or reach up to get something at home w/o pain. 05/09/24: Re trial serratus press motion hooklying causes discomfort R anterior inferior clavicle, haven't progressed in standing. Added hooklying scap retraction with humeral ER (towel under humerus). 05/25/24: had not perfromed this. 05/30/24: Pt avoiding because any wgt currently is painful in overhead positioning waiting to get stronger. LTG Duration 07/27/24 (05/30/24: improved a little, not met goal). Two Impairment Decreased L shoulder painfree ROM Short Term Goal (STG) Pt will be educated and consistent with proper body mechanics for ADLs and able to perform 80% of full L shoulder AROM (flex & AB 144?, ER 72?, IR 56?) w/o pain. 04/18/24: Issued & educated handout: Proper body mechanics for ADLs and instructions for Body MEchanics Basics. 05/25/24: incorporating in work /life. STG Duration 05/04/24 GOAL MET Insole Tape Stitcher [employer] Goal (LTG) Pt rosalba be able to perform functional activities reaching or scratching her back, or reaching out to the side painfree. 05/25/24: can go slow reachbehind back and across R shld but has pain charlene across body due to pain 7/10. 05/30/24: Reaches across body to top of R shoulder. Can reach up and behind the back to scratch, but with pain rated 5-6/10. ~distal end of biceps tendon. Can reach backward w/o pain. 06/01/24: L shdr pain with reaching out to the side. LTG Duration 07/27/24 (05/30/24: partially met goal, can scatch back not reach out) One Impairment Lacks HEP Short Term Goal (STG) Pt will be educated & consistent with self care pain management and best nighttime positioning. 04/11/24: Discussed & issued RICE technique for pain mgmt. 04/18/24: Pt educated in nighttime positioning in sidelie and discussed sup lying, & pt reporting use of cryotherapy after home activity of tossing firewood. 05/30/24: Sleeping w/o pain) STG Duration 05/04/24 (04/18/24: MET GOAL) Insole Tape Stitcher [employer] Goal (LTG) Pt will be independent with a L neck/shoulder ROM and L shoulder/scapular/elbow strengthening program. 04/11/24: HEP: Corner pec stretch & shoulder flex with back of hands on wall. 04/13/24: I/S pt in scap stab ex: shdr wall flex (~100? with kurt shdr ER hold) and Lev 2 TB issued. Pt denies Latex allergy. 04/18/24: HEP: Sidelie shoulder ER/IR. Pt I/S in corner pec stretch. 05/02/24: added serratus press over noodle. (no HO couldn't print, look next tx) 05/04/24: added humeral ER ( towel under humerus, spine along noodle) 05/09/34: DC serratus press at this time, R anterior shld pain. 05/11/24: added resisted rows, shld ext, humeral IR and ER Tb #1. 05/25/24: added AROM over noodle: HABD, protraction, ER, ER>abd Ws painfree range. LTG Duration 07/27/24 progressed 05/25/24, not met goal. Assessment Summary Assessment Pt returns today after last session reporting good and light in L shoulder, and that she did yoga yesterday (on an ariadna). Pt demonstrated improved tolerance to ex and her break test shdr strength shows very good strength except with shoulder AB. She still has pain with lifting her L arm above 90 deg's abduction and is stiff with flexion. In a simulated position of being on a ladder, the pt is able to hang onto ladder with her L UE and lift a light wgt (5# overhead with her R UE). her shoulder ext strength is good and she is able to lean back w/o shoulder pain on a horizontal bar, simulating stabilization of a ladder. The pt has not made gains in lifting overhead w/o L shoulder pain, but she is able to actively reach overhead in flexion, not AB without pain. We will continue per your recommendation. Physical Therapy Plan Frequency and Duration Frequency of Treatment 2x/Week Duration of treatment (weeks) 8 Plan of Care Start Date 05/30/24 Plan of Care End Date 07/27/24 Next Visit Focus/Plan Next Note Type Treatment Note Next Visit Plan *Cleaning spray in room nearby irritant to breathing, tends to tap when sensitive to pressure. Dr. Rory appt 06/05/24, cont per referring physician recommendation. If PT cont'd, recheck HEP TB standing (posterior rhomboid/ postural strengthening: TB #1) and AROM over noodle tolerance. Add treatment: US to krissy biceps tendon. Progress L shoulder ROM f/b active gravity resisted exercise, holding pt back from being aggressive with exercise. POC if PT cont'd: L RC ( possible tear) rehab. PRN Intercostal STM R lateral ribcage, and JMT as needed to reduce rib pain with use of UE 's. Manual: STM L neck/shoulder/ intrascap ms, JMT: ?ribs (7,8) , T/S. Ex: Scap stab, RC strengthening. Modalities: Estim/MH/Ice.
--- NOTE | 2024-07-04 18:08 | PT.OPDS ---
Current Diagnoses Primary osteoarthritis, left shoulder (06/01/24) Incomplete rotator cuff tear or rupture of left shoulder, not specified as traumatic (06/01/24) Visit Care Team Role Provider Type Reba Limon MD Family Provider Non-Staff Primary Care Provider Specialty: Medical Address: [address] [place] [address], [place], [address] Email: Fer Lind DO Attending Provider Non-Staff Referring Provider Specialty: Orthopedics Address: [address] [place] [address], [place], [address] Email: Visit Number Visit Number Discharge Summary PT-OP-B Current Condition Start: 04/06/24 11:51 Freq: Status: Active Protocol: Document 04/06/24 12:16 LRN (Rec: 04/06/24 13:09 LRN [id number]) Current Condition History of Current Condition Onset Date 12/2022 Current Complaints L shoulder pain (R shoulder pain not approved for PT) History of Current Condition States in 2023 had Physical Therapy for L RC injury at [facility] in [facility] for 6-8 sessions, had + response and thought she was healed because she had full ROM, and didn't have the strength tested, but was playing pickle ball, 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 In 12/2022 went on fishing trip and helped staff carry heavy boxes up a [place] and by the end of the trip her L shoulder was very painful. She had injured her R shoulder 7 months ago ( reports, not approved by L&I for treatment); therefore has been doing everything with her L shoulder; it now hurts again. Has tried to do ex's from her previous therapy. Saw Dr. Valadez and then had MRI ( results unknown). Since new onset of L shoulder pain she is limited to lifting to shoulder height or above because of pain. She is attending [facility] PT because she is now working in [employer]. Prior Treatments and Tests No new MRI's or X-rays since new onset of L shoulder pain. MRI done at [facility]; therefore results are not available. Has had chiro visits 10 yrs ago. Pt reports hx of Lumbar herniated disc but no longer has pain. 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 L shoulder pain till September 2023 Now restricted from doing UE activities to waist high. Lives in [place]. Seizure x 1 (10+ yrs ago). Treatment Goals Patient/Caregiver Goals Pt goals: -be able to pull a piece of equipment from above shoulder hgt or reach up to get something at home w/o pain. -functional activities reaching or scratching her back, reaching out to the side painfree. -improve upper body strength. -HEP Personal Factors Other Personal Factors That May Effect Osteoporosis, neck pain w/ Therapy/Recovery severe stenosis (constant R sided ms spasms). 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 PT-OP-C Subjective Start: 04/06/24 11:51 Freq: Status: Active Protocol: Document 06/01/24 09:04 LRN (Rec: 06/01/24 09:55 LRN [id number]) OP-PT Subjective Patient Comments Patient Comments Wants to be cleared to climb a ladder and carry a little weight. Has gone up a ladder at home. PT-OP-E Functional Tests Start: 04/06/24 11:51 Freq: Status: Active Protocol: Document 04/11/24 09:04 LRN (Rec: 04/11/24 10:17 LRN [id number]) Functional Tests Apley's Scratch Test Action 1- Left Slight posterior of R GHJ Action 1- Right Spine of L scapula Action 2- Left T2 Action 2- Right T3 Action 3- Left T5 Action 3- Right T7 PT-OP-H Neuro Start: 04/06/24 11:51 Freq: Status: Active Protocol: Document 04/06/24 12:16 LRN (Rec: 04/06/24 13:09 LRN [id number]) Sensation Evaluation Gross Sensation Gross Sensation WNL PT-OP-J Posture/Palpation/Skin Start: 04/06/24 11:51 Freq: Status: Active Protocol: Document 04/06/24 12:16 LRN (Rec: 04/06/24 13:09 LRN [id number]) Posture Evaluation Position Standing L-Spine Posture Increased Lordosis Shoulder Posture (L) Forward,(L) Elevated Scapula Posture (L) Rotated Down,(L) Elevated Knee Posture (L) Genu Valgus,(R) Genu Valgus Ankle/Foot Posture (R) Pronated,(L) Supinated Comments Posture Comments Dowagers hump, T/S is C- curved w/apex on the left. PT-OP-K Range of Motion Start: 04/06/24 11:51 Freq: Status: Active Protocol: Document 04/25/24 09:00 LRN (Rec: 04/25/24 09:50 LRN [id number]) Shoulder Goniometric Range of Motion Shoulder Right Active Testing Position Stand arm on wall Flexion 133 Comments Rib pain limited on R side Left Active Testing Position Stand arm on wall Flexion 133 PT-OP-M Strength Start: 04/06/24 11:51 Freq: Status: Active Protocol: Document 06/01/24 09:04 LRN (Rec: 06/01/24 12:58 LRN [id number]) Shoulder Strength Shoulder Manual Muscle Testing Left Flexion 5 Normal Abduction (C5) 3 Fair External Rotation 5 Normal Internal Rotation 5 Normal PT-OP-T Assessment and Plan Start: 04/06/24 11:51 Freq: Status: Active Protocol: Document 07/04/24 18:02 LRN (Rec: 07/04/24 19:07 LRN Laptop) Physical Therapy Assessment Goals Three Impairment Decreased L shoulder strength Short Term Goal (STG) Pt will be able to improve upper body strength by tolerating lifting exercises with her L UE and show improved function per UE Quickdash score (inital score 43, 40-59% impaired, score 40- 59). 05/09/24: not able to tolerated FF hooklying, still guarded L open book performing short level arm. Focusing gravity assisted. 05/25/24: tolerated use BUEs lifting log but not using LUE with weight. 05/30/24: Can lift wgt with elbows by her side, can't lift and hold away from the body. Uses wheelbarrel fine. UE Quickdash is 31/81 (20-39% impaired, score 20-39). 06/01/24: Improved L shoulder strength except with AB (flex , ER, IR is 5/5; AB is 3/5). STG Duration 05/04/24 (06/01/24: improved funct'l score, not met goal) [employer] Goal (LTG) Pt will be able to pull a piece of equipment from above shoulder hgt with L arm, or reach up to get something at home w/o pain. 05/09/24: Re trial serratus press motion hooklying causes discomfort R anterior inferior clavicle, haven't progressed in standing. Added hooklying scap retraction with humeral ER (towel under humerus). 05/25/24: had not perfromed this. 05/30/24: Pt avoiding because any wgt currently is painful in overhead positioning waiting to get stronger. LTG Duration 07/27/24 (05/30/24: improved a little, not met goal). Two Impairment Decreased L shoulder painfree ROM Short Term Goal (STG) Pt will be educated and consistent with proper body mechanics for ADLs and able to perform 80% of full L shoulder AROM (flex & AB 144?, ER 72?, IR 56?) w/o pain. 04/18/24: Issued & educated handout: Proper body mechanics for ADLs and instructions for Body MEchanics Basics. 05/25/24: incorporating in work /life. STG Duration 05/04/24 GOAL MET [facility] Goal (LTG) Pt rosalba be able to perform functional activities reaching or scratching her back, or reaching out to the side painfree. 05/25/24: can go slow reachbehind back and across R shld but has pain charlene across body due to pain 7/10. 05/30/24: Reaches across body to top of R shoulder. Can reach up and behind the back to scratch, but with pain rated 5-6/10. ~distal end of biceps tendon. Can reach backward w/o pain. 06/01/24: L shdr pain with reaching out to the side. LTG Duration 07/27/24 (05/30/24: partially met goal, can scatch back not reach out) One Impairment Lacks HEP Short Term Goal (STG) Pt will be educated & consistent with self care pain management and best nighttime positioning. 04/11/24: Discussed & issued RICE technique for pain mgmt. 04/18/24: Pt educated in nighttime positioning in sidelie and discussed sup lying, & pt reporting use of cryotherapy after home activity of tossing firewood. 05/30/24: Sleeping w/o pain) STG Duration 05/04/24 (04/18/24: MET GOAL) [facility] Goal (LTG) Pt will be independent with a L neck/shoulder ROM and L shoulder/scapular/elbow strengthening program. 04/11/24: HEP: Corner pec stretch & shoulder flex with back of hands on wall. 04/13/24: I/S pt in scap stab ex: shdr wall flex (~100? with kurt shdr ER hold) and Lev 2 TB issued. Pt denies Latex allergy. 04/18/24: HEP: Sidelie shoulder ER/IR. Pt I/S in corner pec stretch. 05/02/24: added serratus press over noodle. (no HO couldn't print, look next tx) 05/04/24: added humeral ER ( towel under humerus, spine along noodle) 05/09/34: DC serratus press at this time, R anterior shld pain. 05/11/24: added resisted rows, shld ext, humeral IR and ER Tb #1. 05/25/24: added AROM over noodle: HABD, protraction, ER, ER>abd Ws painfree range. LTG Duration 07/27/24 progressed 05/25/24, not met goal. Assessment Summary Assessment Pt is a 59 yo female who was attending PT rehab for L RC dysfunction, possible tear. Pt was last seen 06/01/24. Message received on 06/09/24, that pt called to notify she was going to have surgery for her L shoulder and requested DC from PT. Pt understands she will need a new referral to return to PT post operatively. Pt made some improvement overall with strength and mobility, but all goals were not met. Pt will be discharged from PT today. Physical Therapy Plan Discharge Physical Therapy Discharge Reasons Patient Request Discharge Comments Thank you for your referral.
== END 2024-07-05 13:26 | disposition home or self-care (01) ==
LOC: PHYS 09:00
PROVIDERS: Family Provider Family Medicine; PCP Family Medicine; Referring Provider Orthopaedic Surgery; Visit Provider Orthopaedic Surgery
DX: M75.112 Incomplete rotator cuff tear or rupture of left shoulder, not specified as traumatic (principal); M19.012 Primary osteoarthritis, left shoulder
CPT/HCPCS: 97110; 97140; 97162; 97530; 97535

== ENCOUNTER → 2024-08-09 07:06 | Outpatient (CLI) | payer OTHER, SELFPAY ==
--- NOTE | 2024-08-09 07:07 | DI.US.S_ITS ---
PROCEDURE: US ABDOMEN LIMITED INDICATIONS: lower right abd pain TECHNIQUE: Real-time scanning was performed of the abdominal and retroperitoneal organs, with image documentation. COMPARISON: [facility], CT, CT ABDOMEN PELVIS WITH CONTRAST, 02/23/2024, 14:13. [facility], US, US ABDOMEN LIMITED, 02/23/2024, 10:53. FINDINGS: Liver: Liver measures 17.4 cm in maximum dimension and is within normal limits in echogenicity. Gallbladder: No gallstones. No wall thickening. No pericholecystic edema. Negative sonographic Buckner's sign. Biliary ducts: Intrahepatic bile ducts are non-dilated. Extrahepatic bile duct caliber measures 5 mm. Normal is 6-7 mm or less in diameter, or 10 mm or less post-cholecystectomy. Pancreas: Visualized portions of the pancreas are sonographically normal. Miscellaneous: No free abdominal fluid. IMPRESSION: Normal gallbladder. No acute sonographic abnormality in the right upper quadrant. Approved by: Kristopher Topete M.D. on 08/09/2024 at 7:48
== END ==
PROVIDERS: Family Provider Family Medicine; PCP Internal Medicine; Referring Provider Nurse Practitioner Family; Visit Provider Nurse Practitioner Family
DX: R10.9 Unspecified abdominal pain (principal)
CPT/HCPCS: 76705

== ENCOUNTER → 2024-09-12 11:36 | Outpatient (CLI) | payer OTHER, SELFPAY ==
[2024-09-12 13:13] LABS: Blood Urea Nitrogen 16 mg/dL (7-17); Calcium 9.4 mg/dL (8.4-10.2); Carbon Dioxide 25 mmol/L (22-32); Chloride 104 mmol/L (98-107); Estimated Glomerular Filt Rate > 60 mL/min (>60); Glucose 111 mg/dL (70-99); HEMOLYSIS < 15 (0-50); Potassium 4.2 mmol/L (3.4-5.1); Sodium 137 mmol/L (137-145)
[2024-09-12 14:48] LABS: Vitamin D 25 Hydroxy (D3) 36.4 ng/mL (30.0-100.0)
== END ==
PROVIDERS: Family Provider Family Medicine; PCP Internal Medicine; Referring Provider Internal Medicine Endocrinology, Diabetes & Metabolism; Visit Provider Internal Medicine Endocrinology, Diabetes & Metabolism
DX: M81.0 Age-related osteoporosis without current pathological fracture (principal)
CPT/HCPCS: 36415; 80048; 82306

== ENCOUNTER → 2024-12-28 17:21 | Outpatient (CLI) | payer OTHER, SELFPAY ==
--- NOTE | 2024-12-28 17:22 | DI.RAD.S_ITS ---
PROCEDURE: XR PELVIS 1-2V INDICATIONS: si joint pain TECHNIQUE: AP view of the pelvis acquired. COMPARISON: None. FINDINGS: Bones: There are no osseous abnormalities. SI and hip joints: Normal in width and alignment without arthritic change Soft tissues: No soft tissue swelling, calcification or mass. IMPRESSION: Normal pelvis Dictated by: Joe Whitehead M.D. on 12/29/2024 at 12:13 Approved by: Joe Whitehead M.D. on 12/29/2024 at 12:13
--- NOTE | 2024-12-28 17:22 | DI.RAD.S_ITS ---
PROCEDURE: XR LUMBAR SPINE MIN 4V INDICATIONS: back pain TECHNIQUE: 5 views of the lumbar spine were acquired, including bilateral oblique views. COMPARISON: None. FINDINGS: Lumbar spine curvature and alignment: Slight rightward curve appreciated. Normal physiologic motion between flexion and extension Bones: There are no osseous abnormalities. Disc spaces: Mild degenerative disc disease T9-10 through L3-4. Moderate L4-5 and L5-S1 degenerative facet disease . Soft tissues: No soft tissue swelling, calcification or mass. IMPRESSION: Degeneration Dictated by: Joe Whitehead M.D. on 12/29/2024 at 12:11 Approved by: Joe Whitehead M.D. on 12/29/2024 at 12:13
== END ==
PROVIDERS: Family Provider Family Medicine; PCP Internal Medicine; Referring Provider Internal Medicine; Visit Provider Internal Medicine
DX: M51.34 Other intervertebral disc degeneration, thoracic region (principal); M51.360 Other intervertebral disc degeneration, lumbar region with discogenic back pain only; M47.816 Spondylosis without myelopathy or radiculopathy, lumbar region; M47.817 Spondylosis without myelopathy or radiculopathy, lumbosacral region; G89.29 Other chronic pain
CPT/HCPCS: 72110; 72170

== ENCOUNTER → 2024-12-30 07:50 | Outpatient (CLI) | payer OTHER, SELFPAY ==
[2024-12-30 10:02] LABS: Hematocrit 38.8 % (36-46); Hemoglobin 13.2 g/dL (12.0-16.0); Mean Corpuscular HGB Conc 34.0 % (30-36); Mean Corpuscular Hemoglobin 30.6 PG (26-34); Mean Corpuscular Volume 90.0 fL (80-100); Platelet Count 208 X10^3/uL (150-400)
[2024-12-30 10:13] LABS: Hemoglobin A1C% w Est Avg Glu 5.3 % (4.0-6.0)
[2024-12-30 10:19] LABS: Alanine Aminotransferase 17 IU/L (<35); Albumin 4.1 g/dL (3.5-5.0); Albumin Globulin Ratio 1.5 (1.0-2.8); Alkaline Phosphatase 58 U/L (38-126); Blood Urea Nitrogen 16 mg/dL (7-17); Calcium 8.8 mg/dL (8.4-10.2); Carbon Dioxide 24 mmol/L (22-32); Chloride 108 mmol/L (98-107); Cholesterol 193 mg/dL (140-199); Estimated Glomerular Filt Rate > 60 mL/min (>60); Globulin 2.7 g/dL (1.7-4.1); Glucose 92 mg/dL (70-99); HDL Cholesterol 103 mg/dL (40-60); HEMOLYSIS < 15 (0-50); Potassium 4.4 mmol/L (3.4-5.1); Sodium 139 mmol/L (137-145); Total Protein 6.8 g/dL (6.3-8.2); Triglycerides 61 mg/dL (35-150)
[2024-12-30 10:50] LABS: TSH w/ Reflex to FT4 2.87 uIU/mL (0.47-4.68)
== END ==
PROVIDERS: Family Provider Family Medicine; PCP Internal Medicine; Referring Provider Internal Medicine; Visit Provider Internal Medicine
DX: E78.2 Mixed hyperlipidemia (principal); M13.80 Other specified arthritis, unspecified site
CPT/HCPCS: 36415; 80053; 80061; 83036; 84443; 85027; 85651; 86140

== ENCOUNTER → 2025-01-12 17:33 | Outpatient (CLI) | payer OTHER, SELFPAY ==
--- NOTE | 2025-01-12 17:35 | DI.RAD.S_ITS ---
PROCEDURE: XR THORACIC SPINE 2V
== END ==
PROVIDERS: Family Provider Family Medicine; PCP Internal Medicine; Referring Provider Internal Medicine; Visit Provider Internal Medicine
DX: M47.814 Spondylosis without myelopathy or radiculopathy, thoracic region (principal); M54.9 Dorsalgia, unspecified; R20.0 Anesthesia of skin
CPT/HCPCS: 72070

== ENCOUNTER → 2025-01-19 09:58 | Outpatient (CLI) | payer OTHER, SELFPAY ==
--- NOTE | 2025-01-19 10:02 | DI.RAD.S_ITS ---
PROCEDURE: XR HAND RT MIN 3V
[2025-01-19 12:01] LABS: Uric Acid 2.7 mg/dL (2.5-6.2)
== END ==
PROVIDERS: Family Provider Family Medicine; PCP Internal Medicine; Referring Provider Nurse Practitioner Family; Visit Provider Nurse Practitioner Family
DX: M19.90 Unspecified osteoarthritis, unspecified site (principal)
CPT/HCPCS: 73130; 84550

== ENCOUNTER → 2025-01-23 14:34 | Outpatient (CLI) | payer OTHER, SELFPAY ==
--- NOTE | 2025-01-23 14:35 | DI.US.S_ITS ---
PROCEDURE: US PELVIC COMPLETE INDICATIONS: pelvic pain TECHNIQUE: Real-time scanning was performed of the pelvic organs, with image documentation. Additional endovaginal scanning was necessary due to incomplete visualization of the adnexal and endometrial structures by transabdominal scanning. COMPARISON: None. FINDINGS: Uterus: Uterus is anteverted and normal in size at 7.2 x 3.6 x 5.1 cm. The myometrium is homogeneous. The endometrium measures 12 mm combined thickness. Small fibroid measuring 8 mm. Ovaries: The ovaries are not seen. Other: No pathologic free abdominal or pelvic fluid. IMPRESSION: Endometrium is thickened measuring 12 mm. Recommend endometrial sampling for further evaluation. The ovaries are not seen. Small fibroid measuring 8 mm. We strive to produce accurate, complete, and clear reports of imaging services. To assist us in improving patient care, this report was composed using standard report templates and voice recognition software. Therefore, it may contain abnormal punctuation, insertions and/or omissions. Occasional wrong-word or sound-alike substitutions may occur. Though we review the report and make efforts to correct it, we do recommend that the report be read carefully in proper context to recognize any text inaccuracies. Dictated by: Giovany Orantes M.D. on 01/23/2025 at 16:33 Approved by: Giovany Orantes M.D. on 01/23/2025 at 16:34
== END ==
LOC: US 14:35
PROVIDERS: Family Provider Family Medicine; PCP Internal Medicine; Referring Provider Internal Medicine; Visit Provider Internal Medicine
DX: R10.20 Pelvic and perineal pain unspecified side (principal); D25.9 Leiomyoma of uterus, unspecified
CPT/HCPCS: 76830; 76856